=== PATIENT | female | born 1955 | race American Indian/Alaskan Native ===

== ENCOUNTER → 2018-07-06 | Outpatient (CLI) | payer MEDICARE ==
[2018-07-06 15:15] VITALS: BP 125/88; PULSE 75; TEMP 97.7; BMI 32.3
--- NOTE | 2018-07-10 11:42 | P.HPBAR ---
Bariatric H&P - History & Physicial H&P Date: 07/06/18 History & Physicial: Visit/CC: lap band follow up Patient initial contact: Initial weight: Initial weight in pounds: Height: 5 ft 5 in Initial BMI: Last weight: Current weight: 87.997 kg Current weight in pounds: 194.00 Current BMI: 32.3 [place] body weight (based on NIH guidelines): 56.699 kg Excess body weight loss: The patient is a 62 year-old F who presents for Bariatric Assessment. Patient presents today for lab band follow up. Patient's requesting to have fluid added to her band. She currently is hungry. Past Medical History Past Medical History: Hypertension, Thyroid Disorder History of Any Multi-Drug Resistant Organisms: None Reported Past Surgical History: Bariatric Surgery Additional Past Surgical History / Comment(s): LAP BAND Past Anesthesia/Blood Transfusion Reactions: No Reported Reaction Smoking Status: Never smoker Surgical - Exam Vital Signs Temp Pulse BP 97.7 F 75 125/88 07/06/18 15:12 07/06/18 15:12 07/06/18 15:12 - General well developed, well nourished, no distress - Eyes PERRL - ENT normal pinna - Abdomen Abdomen: soft, non tender Bariatric Assessment & Plan Plan: Patient LAP-BAND was adjusted. She had 0.5 mL added to her band. She currently is 2.3 mL in the band. She she was able to water without difficulty. She'll follow-up in 4 weeks. Bariatric Checklist Checklist: Plan: Checklist: EGD: 1. Hiatal hernia: 2. H. Pylori: HgbA1c: Vitamin D: Smoking: Never smoker Primary care physician referral: Psychiatry clearance: Cardiology clearance: Sleep study: Diet journal: VTE risk score: VTE risk level: Rehab needs at discharge:
== END | disposition home or self-care (01) ==
LOC: BARWHC3 13:17
PROVIDERS: ATTEND Surgery
DX: Z46.51 Encounter for fitting and adjustment of gastric lap band (principal); T73.0XXA Starvation, initial encounter; K95.09 Other complications of gastric band procedure; Z98.84 Bariatric surgery status
CPT/HCPCS: 99212

== ENCOUNTER → 2018-09-28 | Outpatient (CLI) | payer MEDICARE ==
[2018-09-28 13:29] VITALS: BP 119/87; PULSE 67; TEMP 98.2; BMI 31.8
--- NOTE | 2018-09-28 15:58 | P.HPBAR ---
Bariatric H&P - History & Physicial H&P Date: 09/28/18 History & Physicial: Visit/CC: lap band follow up Patient initial contact: Initial weight: Initial weight in pounds: Height: 5 ft 5 in Initial BMI: Last weight: Current weight: 86.636 kg Current weight in pounds: 191.00 Current BMI: 31.8 [place] body weight (based on NIH guidelines): 56.699 kg Excess body weight loss: The patient is a 63 year-old F who presents for Bariatric Assessment. Patient presents today for her LAP-BAND follow-up. She states she is hungry she is requesting a fill of her band. Past Medical History Past Medical History: Hypertension, Thyroid Disorder History of Any Multi-Drug Resistant Organisms: None Reported Past Surgical History: Bariatric Surgery Additional Past Surgical History / Comment(s): LAP BAND Past Anesthesia/Blood Transfusion Reactions: No Reported Reaction Past Psychological History: No Psychological Hx Reported Smoking Status: Never smoker Past Alcohol Use History: None Reported Past Drug Use History: None Reported Surgical - Exam Vital Signs Temp Pulse BP 98.2 F 67 119/87 09/28/18 13:27 09/28/18 13:27 09/28/18 13:27 - General well developed, well nourished, no distress - Abdomen Abdomen: soft, non tender Bariatric Assessment & Plan Plan: Attempts were made to adjust the patient LAP-BAND. She was supposed to have 2.3 mL in her band. Only 0.5 mL was aspirated. I discussed patient that she has a LAP-BAND leak creating a malfunction of the LAP-BAND system. The patient is scheduled for replacement of LAP-BAND port. Bariatric Checklist Checklist: Plan: Checklist: EGD: 1. Hiatal hernia: 2. H. Pylori: HgbA1c: Vitamin D: Smoking: Never smoker Primary care physician referral: Psychiatry clearance: Cardiology clearance: Sleep study: Diet journal: VTE risk score: VTE risk level: Rehab needs at discharge:
== END | disposition home or self-care (01) ==
LOC: BARWHC3 13:06
PROVIDERS: ATTEND Surgery
DX: Z48.815 Encounter for surgical aftercare following surgery on the digestive system (principal); Z98.84 Bariatric surgery status
CPT/HCPCS: 99212

== ENCOUNTER 2018-10-26 11:23 | Day surgery (SDC) | payer MEDICARE ==
[~2018-10-26 11:23] MED LIST: DEXAMETHASONE SOD PHOSPHATE 10 MG/ML 1 ML VIAL IV ONE; LIDOCAINE 1% 20 ML VIAL (10MG/ML) FOR IV START INTRADERMA PRN; ONDANSETRON 4 MG/2 ML VIAL IVP ONE; SCOPOLAMINE 1.5MG/72HR PATCH TRANSDERM ONE
--- NOTE | 2018-10-26 11:48 | P.GSHP ---
History of Present Illness H&P Date: 10/26/18 Chief Complaint: LAP-BAND port malfunction This is a 63-year-old female who presents today for laparoscopic replacement of LAP-BAND port. Patient has had a malfunctioning LAP-BAND port. Past Medical History Past Medical History: Hypertension, Thyroid Disorder History of Any Multi-Drug Resistant Organisms: None Reported Past Surgical History: Bariatric Surgery, Tonsillectomy Additional Past Surgical History / Comment(s): LAP BAND Past Anesthesia/Blood Transfusion Reactions: No Reported Reaction Smoking Status: Never smoker - Past Family History Mother Family Medical History: No Reported History Medications and Allergies Home Medications Medication Instructions Recorded Confirmed Type Levothyroxine Sodium [Synthroid] 80 mcg PO DAILY 09/01/17 10/26/18 History Multivitamins, Thera [Multivitamin 1 tab PO DAILY 09/01/17 10/26/18 History (formulary)] Aspirin 81 mg PO DAILY 10/21/18 10/21/18 History Losartan Potassium [Cozaar] 100 mg PO DAILY 10/21/18 10/26/18 History Allergies Allergy/AdvReac Type Severity Reaction Status Date / Time No Known Allergies Allergy Verified 10/26/18 11:40 Surgical - Exam - General well developed, well nourished, no distress - Eyes PERRL - ENT normal pinna - Neck no masses - Respiratory normal expansion - Cardiovascular Rhythm: regular - Abdomen Abdomen: soft, non tender Assessment and Plan Assessment: Malfunctioning LAP-BAND port. We'll perform laparoscopic robotic-assisted repair.
[2018-10-26] MEDS: LACTATED RINGERS 1,000 ML IV SCH (11:51)
[2018-10-26] MEDS ORDERED: HEPARIN SODIUM,PORCINE 5,000 UNIT/ML 1 ML VIAL SQ ONE (12:48)
[2018-10-26] MEDS ORDERED: LIDOCAINE 1% INJ 10MG/ML (20 ML MDV) ONE (12:58)
[2018-10-26] MEDS ORDERED: PROPOFOL 10 MG/ML 20 ML VIAL IV ONE (12:58)
[2018-10-26] MEDS ORDERED: SUCCINYLCHOLINE CHLORIDE 100 MG/5 ML SYR IV ONE (12:58)
[2018-10-26] MEDS ORDERED: GLYCOPYRROLATE 0.2 MG/ML 2 ML VIAL ONE (12:58)
[2018-10-26] MEDS ORDERED: fentaNYL (PF) 50 MCG/ML 2 ML AMP ONE (12:58)
[2018-10-26] MEDS ORDERED: MIDAZOLAM 2 MG/2 ML VIAL ONE (12:58)
[2018-10-26] MEDS ORDERED: NEOSTIGMINE 1 MG/ML 10 ML VIAL ONE (12:58)
[2018-10-26] MEDS ORDERED: ROCURONIUM BROMIDE 10 MG/ML 10 ML VIAL IV ONE (12:58)
[2018-10-26] MEDS ORDERED: KETOROLAC 30 MG/ML 1 ML VIAL ONE (12:58)
[2018-10-26] MEDS ORDERED: BUPIVACAIN-EPI 0.5%-1:200,000 30 ML VIAL SQ ONE (13:10)
[2018-10-26] MEDS ORDERED: HYDROcodone/APAP 5-325MG 1 EACH TAB PO PRN (14:13)
[2018-10-26] MEDS ORDERED: NALOXONE 0.4 MG/ML 1 ML VIAL IV PRN (14:13)
[2018-10-26] MEDS ORDERED: LACTATED RINGERS 1,000 ML IV ONE (14:13)
[2018-10-26] MEDS ORDERED: ACETAMINOPHEN TAB 325 MG TAB PO PRN (14:13)
[2018-10-26] MEDS ORDERED: ONDANSETRON 4 MG/2 ML VIAL IVP PRN (14:13)
[2018-10-26] MEDS ORDERED: HYDROmorphone 0.5 MG/0.5 ML SYRINGE IVP PRN (14:13)
[2018-10-26] MEDS: HYDROmorphone 0.5 MG/0.5 ML SYRINGE IVP PRN ×2 (14:22→14:38)
[2018-10-26] MEDS ORDERED: SODIUM CHLORIDE 0.9% 1,000 ML IV ONE (14:25)
--- NOTE | 2018-10-26 14:53 | P.OP ---
Date of Procedure: 10/26/18 Preoperative Diagnosis: LAP-BAND port malfunction Postoperative Diagnosis: LAP-BAND port malfunction Adhesions Procedure(s) Performed: Laparoscopic replacement of LAP-BAND port Lysis of adhesions Anesthesia: LISA Surgeon: Steven Mccollum Estimated Blood Loss (ml): 5 Pathology: none sent Condition: stable Disposition: PACU Description of Procedure: The patient was placed on the operating table in the supine position. She received general anesthesia. Her abdomen was prepped and draped usual sterile fashion. The patient had a LAP-BAND port located in the left upper quadrant. The patient had a midline scar at the umbilicus. The skin was incised at the LAP-BAND port site and using blunt and sharp dissection with cautery the LAP- BAND port was dissected free from the abdominal wall. The LAP-BAND port had been disconnected from the LAP-BAND itself. A 5 mm blade less trocar was placed into the peritoneal cavity at the LAP-BAND port site under direct visualization the peritoneal . The trochars withdrawn. The peritoneal cavity was insufflated. The pelvic cavity insufflated however the camera in the LAP-BAND port there appeared to be adhesions in this location. At this point a another 5 mm trochars placed under direct visualization into the right upper quadrant area. The laparoscope was placed into this area. The areas were the LAP-BAND port was observed and there appeared to be significant fatty adhesions in this area. There was no evidence of any bowel injury. Next a 5 mm trocar was placed in the left lower quadrant and left lateral position. The 5 mm right upper quadrant trocar site was converted to a 15 mm trocar. The connecting tube was then found in the pelvis. The 19 tube tube was then brought up into the right epigastric trocar site. The camera was rotated between the different trocar sites and no injury to the bowel could be seen. At this point the trochars withdrawn. LAP-BAND port was secured to the connecting tube. The LAP-BAND port was secured to the fascia using 0 Nurolon sutures. The skin was closed with interrupted 3-0 Monocryl suture. Dermabond dressings was applied. Patient top procedure well was sent to recovery room in stable condition.
[2018-10-26 16:47] VITALS: BMI 32.3
[2018-10-27] MEDS: LACTATED RINGERS 1,000 ML IV SCH (01:47)
[2018-10-27 07:46] LABS: Basophils % (A) 0 %; Eosinophils % (A) 0 %; HCT 36.6 % (34.0-46.0); HGB 11.5 gm/dL (11.4-16.0); Lymphocytes # (A) 1.7 k/uL (1.0-4.8); Lymphocytes % (A) 11 %; MCH 28.6 pg (25.0-35.0); MCHC 31.4 g/dL (31.0-37.0); MCV 91.2 fL (80.0-100.0); Mean Platelet Volume 6.5; Monocytes # (A) 0.6 k/uL (0-1.0); Monocytes % (A) 4 %; Neutrophils % (A) 84 %; Platelet Count 362 k/uL (150-450); RBC 4.02 m/uL (3.80-5.40); RDW 13.3 % (11.5-15.5); WBC 15.4 k/uL (3.8-10.6)
[2018-10-27 08:01] LABS: Calcium 9.4 mg/dL (8.4-10.2); Potassium 5.1 mmol/L (3.5-5.1); Total Bilirubin 0.5 mg/dL (0.2-1.3); Total Protein 7.1 g/dL (6.3-8.2)
[2018-10-27] MEDS ORDERED: ENOXAPARIN 40 MG/0.4 ML SYRINGE SQ SCH (09:00)
[2018-10-27] MEDS ORDERED: SODIUM CHLORIDE 0.9% 1,000 ML IV SCH (09:30)
[2018-10-27] MEDS ORDERED: LOSARTAN 50 MG TAB PO SCH (11:00)
[2018-10-27] MEDS ORDERED: LEVOTHYROXINE 75 MCG TAB PO SCH (11:00)
--- NOTE | 2018-10-27 11:34 | P.PN ---
Subjective Progress Note Date: 10/27/18 CHIEF COMPLAINT: LAP BAND port malfunction HISTORY OF PRESENT ILLNESS: Patient seen and examined at the bedside this morning. She is status post laparoscopic replacement of lap band port and lysis of adhesions. Patient reports her pain is tolerable. Tolerating clear liquid diet. Denies nausea or vomiting. WBC this morning 15.4. Vital signs stable. Afebrile. PHYSICAL EXAM: VITAL SIGNS: Reviewed. GENERAL: Well-developed in no acute distress. HEENT: No sclera icterus. Extraocular movements grossly intact. Moist buccal mucosa. Head is atraumatic, normocephalic. ABDOMEN: Soft. Nondistended. Surgical incision sites clean dry and intact without drainage or signs of infection NEUROLOGIC: Alert and oriented. Cranial nerves II through XII grossly intact. ASSESSMENT: 1. Lap band port malfunction, status post replacement of port and lysis of adhesions PLAN: 1. Continue clear liquid diet 2. Monitor WBC 3. Pain control 4. Incentive spirometry 5. Activity as tolerated 6. IV fluids at 100cc/hr 7. Likely DC home tomorrow Nurse practitioner note has been reviewed by physician. Signing provider agrees with the documented findings, assessment, and plan of care. Objective - Vital Signs Vital signs: Vital Signs Temp 98.1 F 10/27/18 07:36 Pulse 67 10/27/18 10:37 Resp 18 10/27/18 10:37 BP 149/67 10/27/18 07:36 Pulse Ox 99 10/27/18 00:53 Intake & Output 10/26/18 10/27/18 10/27/18 18:59 06:59 18:59 Intake Total 1000 250 855 Output Total 5 0 Balance 995 250 855 Intake: IV 1000 Oral 250 855 Output: Stool 0 Estimated Blood Loss 5 Other: Voiding Method Toilet # Voids 1 - Labs CBC & Chem 7: 10/27/18 07:32 10/27/18 07:32 Labs: Abnormal Lab Results - Last 24 Hours (Table) 10/27/18 10/27/18 Range/Units 07:32 07:32 WBC 15.4 H (3.8-10.6) k/uL Neutrophils # 13.0 H (1.3-7.7) k/uL Creatinine 1.38 H (0.52-1.04) mg/dL Glucose 134 H (74-99) mg/dL
--- NOTE | 2018-10-27 15:13 | P.DS ---
Providers Expected date of discharge: 10/27/18 Attending physician: Steven Mccollum Primary care physician: Guillermo Pacheco [facility] Course: 63-year-old female who underwent laparoscopic replacement of lap band port and lysis of adhesions with Dr. Mccollum. Patient is doing well postoperatively without anemia complications. She is tolerating liquid diet. Passing flatus. Pain is tolerable. WBC 15.4. Dr. Mccollum aware. Vital signs have been stable. Patient was deemed stable for discharge today per Dr. Mccollum. She is to follow up on an outpatient basis. Please see EMR for further hospital course details. Discharge diagnosis 1. Lap band port malfunction, status post replacement of port and lysis of adhesions Nurse practitioner note has been reviewed by physician. Signing provider agrees with the documented findings, assessment, and plan of care. Plan - Discharge Summary Discharge Rx Participant: Yes New Discharge Prescriptions: New HYDROcodone/APAP 7.5-325MG [[place] 7.5-325] 1 tab PO Q6HR PRN 3 Days #12 tab PRN Reason: Pain Continue Levothyroxine Sodium [Synthroid] 80 mcg PO DAILY Multivitamins, Thera [Multivitamin (formulary)] 1 tab PO DAILY Losartan Potassium [Cozaar] 100 mg PO DAILY Aspirin 81 mg PO DAILY Discharge Medication List Levothyroxine Sodium [Synthroid] 80 mcg PO DAILY 09/01/17 [History] Multivitamins, Thera [Multivitamin (formulary)] 1 tab PO DAILY 09/01/17 [History] Aspirin 81 mg PO DAILY 10/21/18 [History] Losartan Potassium [Cozaar] 100 mg PO DAILY 10/21/18 [History] HYDROcodone/APAP 7.5-325MG [Oark 7.5-325] 1 tab PO Q6HR PRN 3 Days #12 tab 10/27/18 [Rx] Follow up Appointment(s)/Referral(s): Steven Mccollum MD [STAFF PHYSICIAN] - 1 Week Activity/Diet/Wound Care/Special Instructions: No driving while taking Oark No lifting over 10 pounds You may shower. No soaking or tub baths Very light activity until you are reevaluated at your follow up appointment with your surgeon
[2018-10-27 15:41] VITALS: BP 133/75; PULSE 74; RESP 16; TEMP 98.2
== END 2018-10-27 16:16 | disposition home or self-care (01) ==
LOC: OR 11:23 → 4SSUR 15:24 → OR 10-27 16:16
PROVIDERS: ATTEND Surgery
DX: T85.518A Breakdown (mechanical) of other gastrointestinal prosthetic devices, implants and grafts, initial encounter (principal); Z98.84 Bariatric surgery status; K66.0 Peritoneal adhesions (postprocedural) (postinfection); I10 Essential (primary) hypertension; E07.9 Disorder of thyroid, unspecified; Z79.890 Hormone replacement therapy; Z79.82 Long term (current) use of aspirin; Z79.899 Other long term (current) drug therapy; Z97.2 Presence of dental prosthetic device (complete) (partial)
CPT/HCPCS: 43659; 80053; 85025; J2250; J1644; J1100; J2710; J2405; J2001; J1650; J3010; J1885; J0330; J2704; J1170

== ENCOUNTER → 2018-11-16 | Outpatient (CLI) | payer MEDICARE ==
[2018-11-16 13:59] VITALS: BP 131/81; PULSE 66; RESP 16; TEMP 98.3; BMI 33.0
--- NOTE | 2018-11-16 16:27 | P.HPBAR ---
Bariatric H&P - History & Physicial H&P Date: 11/16/18 History & Physicial: Visit/CC: Port Replaced follow-up Patient initial contact: Initial weight: 95.708 kg Initial weight in pounds: 211.00 Height: 5 ft 5 in Initial BMI: 35.1 Last weight: Current weight: 89.925 kg Current weight in pounds: 198.25 Current BMI: 33.0 [place] body weight (based on NIH guidelines): 56.699 kg Excess body weight loss: 14.8% The patient is a 63 year-old F who presents for Bariatric Assessment. Patient presents today for LAP-BAND follow-up. She had a port replacement performed several weeks ago. Patient describes a small bump at her new LAP-BAND port site Past Medical History Past Medical History: Hypertension, Thyroid Disorder Additional Past Medical History / Comment(s): hypothyroidism History of Any Multi-Drug Resistant Organisms: None Reported Past Surgical History: Bariatric Surgery, Tonsillectomy Additional Past Surgical History / Comment(s): LAP BAND (Port Replaced October 2018) Past Anesthesia/Blood Transfusion Reactions: No Reported Reaction Past Psychological History: No Psychological Hx Reported Smoking Status: Never smoker Past Alcohol Use History: None Reported Past Drug Use History: None Reported - Past Family History Mother Family Medical History: No Reported History Father Family Medical History: Diabetes Mellitus Surgical - Exam Vital Signs Temp Pulse Resp BP 98.3 F 66 16 131/81 11/16/18 13:56 11/16/18 13:56 11/16/18 13:56 11/16/18 13:56 - General well developed, well nourished, no distress - Eyes PERRL - Abdomen Incision site clean and intact. There is evidence of a small seroma Bariatric Assessment & Plan Plan: Patient has a seroma at her new LAP-BAND port site. The sternum was aspirated approximately 8 mL of seroma fluid was removed. Patient follow-up in one month for recheck. Bariatric Checklist Checklist: Plan: Checklist: EGD: 1. Hiatal hernia: 2. H. Pylori: HgbA1c: Vitamin D: Smoking: Never smoker Primary care physician referral: Psychiatry clearance: Cardiology clearance: Sleep study: Diet journal: VTE risk score: VTE risk level: Rehab needs at discharge:
== END | disposition home or self-care (01) ==
LOC: BARWHC3 13:09
PROVIDERS: ATTEND Surgery
DX: L76.34 Postprocedural seroma of skin and subcutaneous tissue following other procedure (principal); K95.09 Other complications of gastric band procedure; Z98.84 Bariatric surgery status
CPT/HCPCS: 99211

== ENCOUNTER → 2018-12-07 | Outpatient (CLI) | payer MEDICARE ==
[2018-12-07 13:48] VITALS: BP 120/81; PULSE 79; RESP 16; TEMP 98.5; BMI 32.3
--- NOTE | 2018-12-07 15:55 | P.HPBAR ---
Bariatric H&P - History & Physicial H&P Date: 12/07/18 History & Physicial: Visit/CC: BAND ADJ Patient initial contact: Initial weight: 95.708 kg Initial weight in pounds: 211.00 Height: 5 ft 5 in Initial BMI: 35.1 Last weight: Current weight: 87.997 kg Current weight in pounds: 194.00 Current BMI: 32.3 [place] body weight (based on NIH guidelines): 56.699 kg Excess body weight loss: 19.7% The patient is a 63 year-old F who presents for Bariatric Assessment. Patient presents today for Isak adjusted. She currently is hungry. She requesting a fill of her band. Past Medical History Past Medical History: Hypertension, Thyroid Disorder Additional Past Medical History / Comment(s): hypothyroidism History of Any Multi-Drug Resistant Organisms: None Reported Past Surgical History: Bariatric Surgery, Tonsillectomy Additional Past Surgical History / Comment(s): LAP BAND (Port Replaced October 2018) Past Anesthesia/Blood Transfusion Reactions: No Reported Reaction Past Psychological History: No Psychological Hx Reported Smoking Status: Never smoker Past Alcohol Use History: None Reported Past Drug Use History: None Reported - Past Family History Mother Family Medical History: No Reported History Father Family Medical History: Diabetes Mellitus Surgical - Exam Vital Signs Temp Pulse Resp BP 98.5 F 79 16 120/81 12/07/18 13:45 12/07/18 13:45 12/07/18 13:45 12/07/18 13:45 - General well developed, well nourished, no distress - Eyes PERRL - Abdomen Abdomen: soft, non tender Bariatric Assessment & Plan Plan: Patient LAP-BAND was adjusted. She had 2 mL added to her band. She was ill drink water without difficulty. She'll follow-up in 4 weeks. Bariatric Checklist Checklist: Plan: Checklist: EGD: 1. Hiatal hernia: 2. H. Pylori: HgbA1c: Vitamin D: Smoking: Never smoker Primary care physician referral: Psychiatry clearance: Cardiology clearance: Sleep study: Diet journal: VTE risk score: VTE risk level: Rehab needs at discharge:
== END | disposition home or self-care (01) ==
LOC: BARWHC3 13:17
PROVIDERS: ATTEND Surgery
DX: Z46.51 Encounter for fitting and adjustment of gastric lap band (principal); Z98.84 Bariatric surgery status; Z90.09 Acquired absence of other part of head and neck
CPT/HCPCS: 99212

== ENCOUNTER → 2019-01-04 | Outpatient (CLI) | payer MEDICARE ==
[2019-01-04 15:17] VITALS: BP 164/89; PULSE 72; TEMP 98.1; BMI 32.8
--- NOTE | 2019-01-07 11:13 | P.HPBAR ---
Bariatric H&P - History & Physicial H&P Date: 01/04/19 History & Physicial: Visit/CC: LAP BAND VISIT Patient initial contact: Initial weight: 95.708 kg Initial weight in pounds: 211.00 Height: 5 ft 5 in Initial BMI: 35.1 Last weight: Current weight: 89.358 kg Current weight in pounds: 197.00 Current BMI: 32.8 [place] body weight (based on NIH guidelines): 56.699 kg Excess body weight loss: 16.2% The patient is a 63 year-old F who presents for Bariatric Assessment. Patient presents today for LAP-BAND adjustment. She currently feels hungry. His gained 3 pounds since her last visit. Past Medical History Past Medical History: Hypertension, Thyroid Disorder Additional Past Medical History / Comment(s): hypothyroidism History of Any Multi-Drug Resistant Organisms: None Reported Past Surgical History: Bariatric Surgery, Tonsillectomy Additional Past Surgical History / Comment(s): LAP BAND (Port Replaced October 2018) Past Anesthesia/Blood Transfusion Reactions: No Reported Reaction Past Psychological History: No Psychological Hx Reported Smoking Status: Never smoker Past Alcohol Use History: None Reported Past Drug Use History: None Reported - Past Family History Mother Family Medical History: No Reported History Father Family Medical History: Diabetes Mellitus Surgical - Exam Vital Signs Temp Pulse BP 98.1 F 72 164/89 01/04/19 15:15 01/04/19 15:15 01/04/19 15:15 - General well developed, well nourished, no distress - Eyes PERRL - ENT normal pinna - Neck no masses - Abdomen Abdomen: soft, non tender Bariatric Assessment & Plan Plan: Patient's lap band was adjusted. There was evidence of an obstruction in the LAP-BAND Víctor tube. The fluid could not be placed. The patient will follow-up in 2 weeks. If she still has obstruction of her LAP-BAND connecting tube she will need a revision of her band. Bariatric Checklist Checklist: Plan: Checklist: EGD: 1. Hiatal hernia: 2. H. Pylori: HgbA1c: Vitamin D: Smoking: Never smoker Primary care physician referral: Psychiatry clearance: Cardiology clearance: Sleep study: Diet journal: VTE risk score: VTE risk level: Rehab needs at discharge:
== END | disposition home or self-care (01) ==
LOC: BARWHC3 13:37
PROVIDERS: ATTEND Surgery
DX: Z46.51 Encounter for fitting and adjustment of gastric lap band (principal); Z98.84 Bariatric surgery status; Z90.89 Acquired absence of other organs
CPT/HCPCS: 99212

== ENCOUNTER → 2019-01-18 | Outpatient (CLI) | payer MEDICARE ==
[2019-01-18 15:03] VITALS: BP 143/86; PULSE 72; RESP 16; TEMP 98.3; BMI 33.3
--- NOTE | 2019-01-18 17:00 | P.HPBAR ---
Bariatric H&P - History & Physicial H&P Date: 01/18/19 History & Physicial: Visit/CC: Band f/u Patient initial contact: Initial weight: 95.708 kg Initial weight in pounds: 211.00 Height: 5 ft 5 in Initial BMI: 35.1 Last weight: Current weight: 90.718 kg Current weight in pounds: 200.00 Current BMI: 33.3 [place] body weight (based on NIH guidelines): 56.699 kg Excess body weight loss: 12.7% The patient is a 63 year-old F who presents for Bariatric Assessment. Patient presents today for lab band follow. She has an issue with her port. The port has not easily flushed. She was unable have fluid withdrawn from the port last visit. Past Medical History Past Medical History: Hypertension, Thyroid Disorder Additional Past Medical History / Comment(s): hypothyroidism History of Any Multi-Drug Resistant Organisms: None Reported Past Surgical History: Bariatric Surgery, Tonsillectomy Additional Past Surgical History / Comment(s): LAP BAND (Port Replaced October 2018) Past Anesthesia/Blood Transfusion Reactions: No Reported Reaction Past Psychological History: No Psychological Hx Reported Smoking Status: Never smoker Past Alcohol Use History: None Reported Past Drug Use History: None Reported - Past Family History Mother Family Medical History: No Reported History Father Family Medical History: Diabetes Mellitus Surgical - Exam Vital Signs Temp Pulse Resp BP 98.3 F 72 16 143/86 01/18/19 15:00 01/18/19 15:00 01/18/19 15:00 01/18/19 15:00 - General well developed, well nourished, no distress - Eyes PERRL - ENT normal pinna - Neck no masses - Respiratory normal expansion - Abdomen Abdomen: soft, non tender Bariatric Assessment & Plan Plan: The patient's LAP-BAND was just. 2 mL was added to her band. She currently is 3.5 mL in the band. The LAP-BAND port could not be aspirated. It appears the patient has some sort of obstruction of the cut tube preventing fluid for being aspirated. The patient will be observed. She'll follow-up in one month. I discussed patient that if her and cannot be adjusted she may need revision to replace the band or convert to sleeve gastrectomy. Bariatric Checklist Checklist: Plan: Checklist: EGD: 1. Hiatal hernia: 2. H. Pylori: HgbA1c: Vitamin D: Smoking: Never smoker Primary care physician referral: Psychiatry clearance: Cardiology clearance: Sleep study: Diet journal: VTE risk score: VTE risk level: Rehab needs at discharge:
== END | disposition home or self-care (01) ==
LOC: BARWHC3 13:51
PROVIDERS: ATTEND Surgery
DX: Z46.51 Encounter for fitting and adjustment of gastric lap band (principal); Z98.84 Bariatric surgery status; Z90.09 Acquired absence of other part of head and neck
CPT/HCPCS: 99211

== ENCOUNTER → 2019-02-08 | Outpatient (CLI) | payer MEDICARE ==
[2019-02-08 12:04] VITALS: BMI 33.3
== END | disposition home or self-care (01) ==
LOC: BARWHC3 08:54
PROVIDERS: ATTEND Surgery
DX: E66.01 Morbid (severe) obesity due to excess calories (principal); Z68.33 Body mass index [BMI] 33.0-33.9, adult
CPT/HCPCS: 97804

== ENCOUNTER → 2019-02-22 | Outpatient (CLI) | payer MEDICARE ==
[2019-02-22 14:38] VITALS: BP 138/80; PULSE 83; TEMP 98.2; BMI 37.0
--- NOTE | 2019-05-02 13:04 | P.HPBAR ---
Bariatric H&P - History & Physicial H&P Date: 02/22/19 History & Physicial: Visit/CC: presurgical visit Patient initial contact: Initial weight: 95.708 kg Initial weight in pounds: 211.00 Height: 5 ft 3 in Initial BMI: 37.3 Last weight: Current weight: 94.801 kg Current weight in pounds: 209.00 Current BMI: 37.0 [place] body weight (based on NIH guidelines): 52.163 kg Excess body weight loss: 2.0% The patient is a 63 year-old F who presents for Bariatric Assessment. Patient presents today for presurgical consultation. She is requesting have her band removed and converted to sleeve gastrectomy. She has had issues with LAP-BAND malfunction chronic dysphagia. Past Medical History Past Medical History: Hypertension, Thyroid Disorder Additional Past Medical History / Comment(s): hypothyroidism History of Any Multi-Drug Resistant Organisms: None Reported Past Surgical History: Bariatric Surgery, Tonsillectomy Additional Past Surgical History / Comment(s): LAP BAND (Port Replaced October 2018) Past Anesthesia/Blood Transfusion Reactions: No Reported Reaction Smoking Status: Never smoker - Past Family History Mother Family Medical History: No Reported History Father Family Medical History: Diabetes Mellitus Surgical - Exam Vital Signs Temp Pulse BP 98.2 F 83 138/80 02/22/19 14:34 02/22/19 14:34 02/22/19 14:34 - General well developed, well nourished, no distress - Eyes PERRL - ENT normal pinna - Cardiovascular Rhythm: regular - Abdomen Abdomen: soft, non tender Bariatric Assessment & Plan Plan: Morbid obesity, BMI 37. Patient's LAP-BAND is dysfunctional. She's had issues with GERD and dysphagia. Patient be converted to sleeve gastrectomy with removal LAP-BAND. Patient reversed surgery including possible conversion to open procedure and injury to the stomach liver spleen vagotomy dysphagia recurrent GERD symptoms. Bariatric Checklist Checklist: Plan: Checklist: EGD: 1. Hiatal hernia: 2. H. Pylori: HgbA1c: Vitamin D: Smoking: Never smoker Primary care physician referral: dr kim Psychiatry clearance: Cardiology clearance: Sleep study: Diet journal: VTE risk score: VTE risk level: Rehab needs at discharge:
== END | disposition home or self-care (01) ==
LOC: BARWHC3 13:55
PROVIDERS: ATTEND Surgery
DX: Z46.51 Encounter for fitting and adjustment of gastric lap band (principal); E66.01 Morbid (severe) obesity due to excess calories; Z68.37 Body mass index [BMI] 37.0-37.9, adult; K21.9 Gastro-esophageal reflux disease without esophagitis; R13.10 Dysphagia, unspecified; Z98.84 Bariatric surgery status
CPT/HCPCS: 99211

== ENCOUNTER 2019-03-25 05:40 | Inpatient (IN) | payer MEDICARE ==
[2019-03-22 16:02] VITALS: BMI 28.3
[~2019-03-25 05:40] MED LIST changes: -DEXAMETHASONE SOD PHOSPHATE 10 MG/ML 1 ML VIAL IV ONE; +ENOXAPARIN 40 MG/0.4 ML SYRINGE SQ ONE; -LIDOCAINE 1% 20 ML VIAL (10MG/ML) FOR IV START INTRADERMA PRN; -ONDANSETRON 4 MG/2 ML VIAL IVP ONE; -SCOPOLAMINE 1.5MG/72HR PATCH TRANSDERM ONE
[2019-03-25] MEDS ORDERED: ONDANSETRON 4 MG/2 ML VIAL IVP ONE (05:51)
[2019-03-25] MEDS ORDERED: MIDAZOLAM 2 MG/2 ML VIAL IV PRN (05:51)
[2019-03-25] MEDS ORDERED: DEXAMETHASONE SOD PHOSPHATE 10 MG/ML 1 ML VIAL IV ONE (05:51)
[2019-03-25] MEDS ORDERED: SCOPOLAMINE 1.5MG/72HR PATCH TRANSDERM ONE (05:51)
[2019-03-25] MEDS: LACTATED RINGERS 1,000 ML IV SCH (06:46)
[2019-03-25] MEDS ORDERED: PROPOFOL 10 MG/ML 20 ML VIAL IV ONE (07:47)
[2019-03-25] MEDS ORDERED: KETAMINE 10 MG/ML 20 ML VIAL ONE (07:47)
[2019-03-25] MEDS ORDERED: PHENYLEPHRINE-0.9% NACL SYG 1 MG/10 ML SYRINGE ONE (07:47)
[2019-03-25] MEDS ORDERED: ePHEDrine SULFATE/0.9% NACL/PF 50 MG/5 ML SYRINGE IV ONE (07:47)
[2019-03-25] MEDS ORDERED: SUCCINYLCHOLINE CHLORIDE 100 MG/5 ML SYR IV ONE (07:47)
[2019-03-25] MEDS ORDERED: NEOSTIGMINE 1 MG/ML 10 ML VIAL ONE (07:47)
[2019-03-25] MEDS ORDERED: fentaNYL (PF) 50 MCG/ML 2 ML AMP ONE (07:47)
[2019-03-25] MEDS ORDERED: MIDAZOLAM 2 MG/2 ML VIAL ONE (07:47)
[2019-03-25] MEDS ORDERED: LIDOCAINE 1% INJ 10MG/ML (20 ML MDV) ONE (07:47)
[2019-03-25] MEDS ORDERED: GLYCOPYRROLATE 0.2 MG/ML 2 ML VIAL ONE (07:47)
[2019-03-25] MEDS ORDERED: ROCURONIUM BROMIDE 10 MG/ML 10 ML VIAL IV ONE (07:47)
--- NOTE | 2019-03-25 07:56 | P.GSHP ---
History of Present Illness H&P Date: 03/25/19 Chief Complaint: Morbid obesity, lap band malfunction This is a 63-year-old female who presents today for removal LAP-BAND and conversion sleeve gastrectomy. Patient had a previous Isak device. Her LAP- BAND port is nonfunctional. Patient elected to undergo removal LAP-BAND and conversion sleeve gastrectomy. Patient will receive surgery including gastric staple line disruption, bleeding or scarring Past Medical History Past Medical History: Hypertension, Thyroid Disorder Additional Past Medical History / Comment(s): Hypothyroidism. History of Any Multi-Drug Resistant Organisms: None Reported Past Surgical History: Bariatric Surgery, Tonsillectomy Additional Past Surgical History / Comment(s): LAP BAND (Port Replaced October 2018). Past Anesthesia/Blood Transfusion Reactions: No Reported Reaction Past Psychological History: No Psychological Hx Reported Smoking Status: Never smoker Past Alcohol Use History: None Reported Past Drug Use History: None Reported - Past Family History Mother Family Medical History: No Reported History Father Family Medical History: Diabetes Mellitus Medications and Allergies Home Medications Medication Instructions Recorded Confirmed Type Multivitamins, Thera [Multivitamin 1 tab PO DAILY 09/01/17 03/25/19 History (formulary)] Aspirin 81 mg PO DAILY 10/21/18 03/25/19 History Losartan Potassium [Cozaar] 100 mg PO QAM 10/21/18 03/25/19 History Levothyroxine Sodium 88 mcg PO QAM 03/22/19 03/25/19 History Allergies Allergy/AdvReac Type Severity Reaction Status Date / Time No Known Allergies Allergy Verified 03/25/19 06:10 Surgical - Exam Vital Signs Temp Pulse Resp BP Pulse Ox 98.7 F 85 16 160/88 98 03/25/19 06:13 03/25/19 06:13 03/25/19 06:13 03/25/19 06:13 03/25/19 06:13 - General well developed, well nourished - Eyes PERRL - ENT normal pinna - Neck no masses - Respiratory normal expansion - Cardiovascular Rhythm: regular - Abdomen Abdomen: soft, non tender Assessment and Plan Assessment: Morbid obesity LAP-BAND port malfunction We'll perform sleeve gastrectomy removal LAP-BAND.
--- NOTE | 2019-03-25 08:05 | P.OP ---
Date of Procedure: 03/25/19 Preoperative Diagnosis: Diarrhea Postoperative Diagnosis: Normal colon Rectal biopsy Procedure(s) Performed: Colonoscopy Anesthesia: MAC Surgeon: Steven Mccollum Pathology: other (Rectal biopsy) Condition: stable Disposition: PACU Description of Procedure: Patient's placed on the endoscopy table in the lateral position. She received IV sedation. The digital rectal exam was performed which revealed no abnormalities. Flexible colonoscope was then placed patient anus passed rotator entire colon. Ileocecal valve was visualized. The cecum, ascending and transverse colon appeared normal. The descending and sigmoid colon appeared normal. Scope was brought back the rectum and this appeared normal. However due the patient's symptoms of diarrhea a random rectal biopsy performed with the cold forcep. Scope was withdrawn for patient.
[2019-03-25] MEDS ORDERED: BUPIVACAINE (PF) 0.25% 30 ML VIAL SQ ONE (08:19)
[2019-03-25] MEDS ORDERED: LACTATED RINGERS 1,000 ML IV ONE (09:03)
[2019-03-25] MEDS: HYDROmorphone 0.5 MG/0.5 ML SYRINGE IVP PRN ×3 (09:51→10:12)
[2019-03-25] MEDS ORDERED: ONDANSETRON 4 MG/2 ML VIAL IVP PRN (10:53)
[2019-03-25] MEDS ORDERED: METOCLOPRAMIDE 5 MG/ML 2 ML VIAL IVP PRN (10:53)
[2019-03-25] MEDS ORDERED: ACETAMINOPHEN IV (For NPO) 1,000 MG in EMPTY BAG 1 BAG IVPB PRN (10:54)
[2019-03-25] MEDS ORDERED: SODIUM CHLORIDE 0.9% 1,000 ML IV ONE ×2 (11:11)
[2019-03-25] MEDS ORDERED: NALOXONE 0.4 MG/ML 1 ML VIAL IV PRN (11:37)
--- NOTE | 2019-03-25 11:37 | P.ANPRN ---
Procedure Note - Anesthesia - Nerve Block Performed Other (see comment) Time Out Performed: Yes (Thoracic Continuous Epidural T-10) Date of Procedure: 03/25/19 Procedure Start Time: 10:12 Location of Patient: Phase I Indication: Acute Post-Operative Pain Specifically requested for management of pain by DrLucero: Steven Mccollum Sedation Type: Sedate with meaningful contact maintained Preparation: Sterile Prep Position: Right Lateral (Right paramedian approach) Catheter Depth at Skin (cm): 10 Catheter: Indwelling Needle Types: Other (see comment) (Standard epidural catheter) Needle Gauge: 18 (TouhEverfi) Ultrasound used to visualize needle placement: No Ultrasound used to observe medication spread: No Injectate: Other (see comment) (Lidocaine 1-1/2% with epinephrine 5 mcg/mL and 3 mL test dose) Adjunct: Epinephrine (see comment for dilution ratio) (1/200,000) Blood Aspirated: No Pain Paresthesia on Injection Noted: No Resistance on Injection: Normal Image Stored and Saved: No Events: Uneventful and Well Tolerated
[2019-03-25 11:46] LABS: HCT 32.2 % (34.0-46.0); HGB 10.6 gm/dL (11.4-16.0); MCH 30.1 pg (25.0-35.0); MCHC 32.8 g/dL (31.0-37.0); MCV 91.7 fL (80.0-100.0); Mean Platelet Volume 7.3; Platelet Count 289 k/uL (150-450); RBC 3.51 m/uL (3.80-5.40); RDW 12.6 % (11.5-15.5); WBC 17.9 k/uL (3.8-10.6)
--- NOTE | 2019-03-25 11:57 | P.OP ---
Date of Procedure: 03/25/19 Preoperative Diagnosis: Lap band malfunction Morbid obesity Postoperative Diagnosis: LAP-BAND malfunction Morbid obesity Significant adhesions Procedure(s) Performed: Laparoscopic lysis of adhesions Open lysis of adhesions Removal of LAP-BAND system Anesthesia: LISA Surgeon: Steven Mccollum Pathology: none sent Condition: stable Disposition: PACU Description of Procedure: Patient's placed on the operating table in supine position. She received general anesthesia. She was then placed in dorsal lithotomy position. Her abdomen was prepped and draped in usual sterile fashion. The skin was incised the LAP-BAND port site then using a large cautery and blunt and sharp dissection LAP-BAND port was dissected free from the fascia. It was sent to pathology. Using a Veress needle in the left upper quadrant a small skin incision was made and then the Veress needles placed in the left epigastric area just below the costal margin. The abdomen was insufflated. Next a skin incision made in the left lateral position and then using an optical trocar under direct visualization panel cavity is entered. There appeared to be extensive adhesions around the 5 mm trocar. At this point a another 5 mm trochars placed in the right lateral position this was done under direct vision through an optical trocar. The laparoscope was then placed into the. Cavity. There were extensive adhesions from the midline and in the left upper quadrant. Another 5 millimeter trocar is placed in the right lateral position and the adhesions were lysed. At this point decided to perform an open removal of the LAP-BAND device because of the significant adhesions. The trochars withdrawn. The skin was incised the midline. Using cautery the subcutaneous tissue divided. The fascia was divided midline. And then the fascia was grasped her Yamileth's. Approximately 20 minutes of operative time used to lyse adhesions. The LAP-BAND device was found. The adhesions Isak device were then dissected using cautery. The LAP-BAND was then cut and then withdrawn from around stomach. The abdomen was drained states. There is no bleeding seen. The fascia is closed loop #1 PDS suture. The skin was closed darcy. Patient top she will was sent to recovery in stable condition.
[2019-03-25] MEDS: ROPIVACAINE 400 MG, HYDROMORPHONE (PF) 5 MG in SODIUM CHLORIDE 0.9% 170 ML EPIDURAL PRN ×2 (12:16→13:31)
[2019-03-25] MEDS: DEXTROSE 5%-0.45% NACL 1,000 ML IV SCH ×2 (14:50→21:35)
[2019-03-25 15:28] VITALS: RESP 16
[2019-03-25] MEDS: diphenhydrAMINE 25 MG CAP PO PRN (20:53)
[2019-03-26] MEDS: diphenhydrAMINE 25 MG CAP PO PRN ×2 (04:33→09:56)
[2019-03-26] MEDS: DEXTROSE 5%-0.45% NACL 1,000 ML IV SCH ×3 (04:33→20:02)
[2019-03-26] MEDS: LACTATED RINGERS 1,000 ML IV SCH (04:39)
[2019-03-26] MEDS: PANTOPRAZOLE 40 MG/10 ML VIAL IVP SCH (07:04)
[2019-03-26] MEDS: ENOXAPARIN 40 MG/0.4 ML SYRINGE SQ SCH (07:04)
[2019-03-26 07:34] LABS: Basophils % (A) 0 %; Eosinophils % (A) 0 %; HCT 32.8 % (34.0-46.0); HGB 10.3 gm/dL (11.4-16.0); Lymphocytes # (A) 1.5 k/uL (1.0-4.8); Lymphocytes % (A) 10 %; MCH 28.8 pg (25.0-35.0); MCHC 31.5 g/dL (31.0-37.0); MCV 91.7 fL (80.0-100.0); Monocytes # (A) 0.9 k/uL (0-1.0); Monocytes % (A) 6 %; Neutrophils # (A) 12.8 k/uL (1.3-7.7); Neutrophils % (A) 84 %; Platelet Count 308 k/uL (150-450); RBC 3.58 m/uL (3.80-5.40); RDW 12.6 % (11.5-15.5); WBC 15.3 k/uL (3.8-10.6)
[2019-03-26 07:43] LABS: Calcium 8.8 mg/dL (8.4-10.2); Potassium 4.7 mmol/L (3.5-5.1)
--- NOTE | 2019-03-26 08:38 | P.PN ---
Progress Note - Text Progress Note Date: 03/26/19 Patient is without complaints. Denies pain. Ambulating w/o leg weakness. Denies headache or pruritis. Tolerating clears. Epidural @ 4 ml/hr VSS Back - epidural site clean and dry A/P POD#1 s/p Ex lap, LUIS, lap band removal - continue current regimen
[2019-03-26] MEDS ORDERED: HYDROmorphone 0.5 MG/0.5 ML SYRINGE IVP PRN (09:47)
[2019-03-26] MEDS: LOSARTAN 50 MG TAB PO SCH (09:52)
[2019-03-26] MEDS: MULTIVITAMINS, THERA 1 EACH TAB PO SCH (09:53)
[2019-03-26] MEDS: LEVOTHYROXINE 88 MCG TAB PO SCH (09:53)
[2019-03-26] MEDS ORDERED: KETOROLAC 30 MG/ML 1 ML VIAL IVP PRN (13:18)
--- NOTE | 2019-03-26 13:20 | P.PN ---
Subjective Progress Note Date: 03/26/19 CHIEF COMPLAINT: lap band malfunction, morbid obesity HISTORY OF PRESENT ILLNESS: 63-year-old female who underwent open lysis of adhesions and removal of lap band system. Patient was originally scheduled for sleeve gastrectomy but was unable to be performed secondary to extensive adhesions. patient examined this morning at the bedside. She reports her pain is tolerable. She is epidural infusing. Patient is complaining of itching with the epidural and states the Benadryl is not helping. She is tolerating clear liquid diet. Passing flatus. Denies nausea or vomiting. PHYSICAL EXAM: VITAL SIGNS: Reviewed. GENERAL: Well-developed in no acute distress. HEENT: No sclera icterus. Extraocular movements grossly intact. Moist buccal mucosa. Head is atraumatic, normocephalic. ABDOMEN: Soft. Nondistended. Dressing to midline incision clean dry and intact. NEUROLOGIC: Alert and oriented. Cranial nerves II through XII grossly intact. ASSESSMENT: 1. lap band malfunction, morbid obesity, s/p open lysis of adhesions and removal of lap band system PLAN: -Patient c/o itching not relieved with Benadryl. Dr. Mccollum okayed epidural to be discontinued today. patient did receive Lovenox this morning. Discussed with nursing who will discontinue epidural 12 hours after Lovenox administration time. Will add IV Dilaudid and Preston as needed -Discontinue Cota catheter tomorrow morning -Advance diet to full liquid -Incentive spirometer 10 times an hour while awake -Increase activity as tolerated -Possible discharge within the next 24-48 hours Nurse practitioner note has been reviewed by physician. Signing provider agrees with the documented findings, assessment, and plan of care. Objective - Vital Signs Vital signs: Vital Signs Temp 98.2 F 03/26/19 07:30 Pulse 81 03/26/19 07:30 Resp 16 03/26/19 07:30 BP 121/56 03/26/19 07:30 Pulse Ox 98 03/25/19 23:00 Intake & Output 03/25/19 03/26/19 03/26/19 18:59 06:59 18:59 Intake Total 1705.5 Output Total 1999 Balance 1705.5 -1999 Weight 89.811 kg Intake: IV 1705.5 Output: Urine 1999 Other: Voiding Method Indwelling Catheter Indwelling Catheter - Labs CBC & Chem 7: 03/26/19 06:51 03/26/19 06:51 Labs: Abnormal Lab Results - Last 24 Hours (Table) 03/26/19 03/26/19 Range/Units 06:51 06:51 WBC 15.3 H (3.8-10.6) k/uL RBC 3.58 L (3.80-5.40) m/uL Hgb 10.3 L (11.4-16.0) gm/dL Hct 32.8 L (34.0-46.0) % Neutrophils # 12.8 H (1.3-7.7) k/uL Sodium 135 L (137-145) mmol/L Carbon Dioxide 21 L (22-30) mmol/L BUN 22 H (7-17) mg/dL Creatinine 1.71 H (0.52-1.04) mg/dL
[2019-03-26] MEDS: HYDROcodone/APAP 5-325MG 1 EACH TAB PO PRN ×3 (16:26→23:39)
--- NOTE | 2019-03-26 16:43 | P.CONS ---
History of Present Illness - Reason for Consult Consult date: 03/26/19 Medical management of hypertension and hypothyroidism - Chief Complaint Lap band malfunction - History of Present Illness 63-year-old female who presents today for removal LAP-BAND and conversion sleeve gastrectomy. Patient had a previous Isak device. Her LAP-BAND port is nonfunctional. Patient elected to undergo removal LAP-BAND and conversion sleeve gastrectomy. Patient will receive surgery including gastric staple line disruption, bleeding or scarring Patient underwent surgery on 03/25/2019 with laparoscopic lysis of adhesion, open lysis of adhesions and removal of lap band system; patient was initially scheduled for sleeve gastrectomy which could not be performed secondary to ext ensive adhesions; patient is POD #1 Review of Systems REVIEW OF SYSTEMS: CONSTITUTIONAL: No fever, no malaise, no fatigue. HEENT: No recent visual problems or hearing problems. Denied any sore throat. CARDIOVASCULAR: No chest pain, orthopnea, PND, no palpitations, no syncope. PULMONARY: No shortness of breath, no cough, no hemoptysis. GASTROINTESTINAL: No diarrhea, no nausea, no vomiting, no abdominal pain. NEUROLOGICAL: No headaches, no weakness, no numbness. HEMATOLOGICAL: Denies any bleeding or petechiae. GENITOURINARY: Denies any burning micturition, frequency, or urgency. MUSCULOSKELETAL/RHEUMATOLOGICAL: Denies any joint pain, swelling, or any muscle pain. ENDOCRINE: Denies any polyuria or polydipsia. The rest of the 14-point review of systems is negative. Past Medical History Past Medical History: Hypertension, Thyroid Disorder Additional Past Medical History / Comment(s): Hypothyroidism. History of Any Multi-Drug Resistant Organisms: None Reported Past Surgical History: Bariatric Surgery, Tonsillectomy Additional Past Surgical History / Comment(s): LAP BAND (Port Replaced October 2018). Past Anesthesia/Blood Transfusion Reactions: No Reported Reaction Past Psychological History: No Psychological Hx Reported Smoking Status: Never smoker Past Alcohol Use History: None Reported Past Drug Use History: None Reported - Past Family History Mother Family Medical History: No Reported History Father Family Medical History: Diabetes Mellitus Medications and Allergies Home Medications Medication Instructions Recorded Confirmed Type Multivitamins, Thera [Multivitamin 1 tab PO DAILY 09/01/17 03/25/19 History (formulary)] Aspirin 81 mg PO DAILY 10/21/18 03/25/19 History Losartan Potassium [Cozaar] 100 mg PO QAM 10/21/18 03/25/19 History Levothyroxine Sodium 88 mcg PO QAM 03/22/19 03/25/19 History Hydrocodone/Acetaminophen [[place] 1 tab PO Q6HR PRN 3 Days #12 tab 03/26/19 Rx 5-325] Allergies Allergy/AdvReac Type Severity Reaction Status Date / Time No Known Allergies Allergy Verified 03/25/19 06:10 Physical Exam Vitals: Vital Signs Temp Pulse Pulse Pulse Resp BP Pulse Ox 03/26/19 07:30 98.2 F 81 16 121/56 03/26/19 02:22 109/58 03/26/19 00:00 16 03/25/19 23:00 98.3 F 91 16 80/52 98 03/25/19 20:00 16 03/25/19 19:56 97.8 F 95 16 116/60 94 L 03/25/19 14:03 97.5 F L 83 16 144/81 95 03/25/19 13:00 87 17 137/67 100 03/25/19 12:30 77 16 128/76 100 03/25/19 12:15 76 16 130/76 100 Intake and Output 03/25/19 03/26/19 03/26/19 22:59 06:59 14:59 Output Total 600 1400 Balance -600 -1400 Output: Urine 600 1400 Other: Voiding Method Indwelling Catheter Indwelling Catheter PHYSICAL EXAMINATION: GENERAL: The patient is alert and oriented x3, not in any acute distress. Well developed, well nourished. HEENT: Pupils are round and equally reacting to light. EOMI. No scleral icterus. No conjunctival pallor. Normocephalic, atraumatic. No pharyngeal erythema. No thyromegaly. CARDIOVASCULAR: S1 and S2 present. No murmurs, rubs, or gallops. PULMONARY: Chest is clear to auscultation, no wheezing or crackles. ABDOMEN: Soft, nontender, nondistended, normoactive bowel sounds. No palpable organomegaly. MUSCULOSKELETAL: No joint swelling or deformity. EXTREMITIES: No cyanosis, clubbing, or pedal edema. NEUROLOGICAL: Gross neurological examination did not reveal any focal deficits. SKIN: No rashes. Results CBC & Chem 7: 03/26/19 06:51 03/26/19 06:51 Labs: Abnormal Lab Results - Last 24 Hours (Table) 03/26/19 03/26/19 Range/Units 06:51 06:51 WBC 15.3 H (3.8-10.6) k/uL RBC 3.58 L (3.80-5.40) m/uL Hgb 10.3 L (11.4-16.0) gm/dL Hct 32.8 L (34.0-46.0) % Neutrophils # 12.8 H (1.3-7.7) k/uL Sodium 135 L (137-145) mmol/L Carbon Dioxide 21 L (22-30) mmol/L BUN 22 H (7-17) mg/dL Creatinine 1.71 H (0.52-1.04) mg/dL Assessment and Plan Assessment: 1. Lap band malfunction/ morbid obesity - Patient underwent initially laparoscopic and then open lysis of adhesions and removal of lap band system; patient plan was to perform sleeve gastrectomy at the time which could not be performed secondary to extensive adhesions; [facility] surgery is following and patient has been advanced to clear liquid diet; patient reports passing flatus 2. Hypertension; continue with losartan 100 mg daily 3. Hypothyroidism; clinically euthyroid on levothyroxine 88 MCG daily 4. DVT prophylaxis; SCDs/subcu Lovenox CODE STATUS; full code Time with Patient: Greater than 30
[2019-03-27] MEDS: HYDROcodone/APAP 5-325MG 1 EACH TAB PO PRN ×3 (04:01→15:48)
[2019-03-27] MEDS: DEXTROSE 5%-0.45% NACL 1,000 ML IV SCH ×2 (04:08→12:32)
[2019-03-27] MEDS: LEVOTHYROXINE 88 MCG TAB PO SCH (05:37)
[2019-03-27] MEDS: LACTATED RINGERS 1,000 ML IV SCH (05:37)
[2019-03-27] MEDS: MULTIVITAMINS, THERA 1 EACH TAB PO SCH (08:21)
[2019-03-27] MEDS: LOSARTAN 50 MG TAB PO SCH (08:21)
[2019-03-27] MEDS: PANTOPRAZOLE 40 MG/10 ML VIAL IVP SCH (08:21)
[2019-03-27] MEDS: ENOXAPARIN 40 MG/0.4 ML SYRINGE SQ SCH (08:21)
--- NOTE | 2019-03-27 10:16 | P.PN ---
Subjective Progress Note Date: 03/27/19 Principal diagnosis: Lap band intolerance Patient doing fairly well today. T-max 100.5. No labs. She is tolerating her liquid diet. She states she would like to go home today if possible. She is ambulating. Objective - Vital Signs Vital signs: Vital Signs Temp 98.5 F 03/27/19 05:26 Pulse 77 03/27/19 07:50 Resp 16 03/27/19 07:50 BP 106/68 03/27/19 01:41 Pulse Ox 91 L 03/27/19 01:41 Intake & Output 03/26/19 03/27/19 03/27/19 18:59 06:59 18:59 Intake Total 2280 Output Total 1250 2000 Balance 1030 -2000 Intake: Oral 2280 Output: Urine 1250 1999 Other: Voiding Method Indwelling Catheter Indwelling Catheter Indwelling Catheter # Voids 0 - Exam Abdomen: Soft, nondistended, dressing clean and dry, mild tenderness - Labs CBC & Chem 7: 03/26/19 06:51 03/26/19 06:51 Assessment and Plan (1) GERD (gastroesophageal reflux disease) Narrative/Plan: Patient doing fairly well. Continue to monitor throughout the day. Possible discharge later today or tomorrow. Current Visit: Yes Status: Acute Code(s): K21.9 - GASTRO-ESOPHAGEAL REFLUX DISEASE WITHOUT ESOPHAGITIS SNOMED Code(s): 411454626
[2019-03-27 10:51] LABS: Basophils % (A) 0 %; Eosinophils # (A) 0.2 k/uL (0-0.7); Eosinophils % (A) 2 %; HCT 32.3 % (34.0-46.0); HGB 10.4 gm/dL (11.4-16.0); Lymphocytes # (A) 1.1 k/uL (1.0-4.8); Lymphocytes % (A) 11 %; MCH 29.3 pg (25.0-35.0); MCV 91.6 fL (80.0-100.0); Mean Platelet Volume 7.1; Monocytes # (A) 0.5 k/uL (0-1.0); Monocytes % (A) 5 %; Neutrophils # (A) 7.8 k/uL (1.3-7.7); Neutrophils % (A) 80 %; Platelet Count 256 k/uL (150-450); RBC 3.53 m/uL (3.80-5.40); RDW 12.7 % (11.5-15.5); WBC 9.7 k/uL (3.8-10.6)
[2019-03-27 15:33] VITALS: BP 127/81; PULSE 71; TEMP 98.9
--- NOTE | 2019-03-27 15:54 | P.PN ---
Subjective Progress Note Date: 03/27/19 Principal diagnosis: lap band malfunction Hypertension Hypothyroidism 03/27/2019 Patient is seen and evaluated in room at bedside; has been ambulating to the bathroom with help and is tolerating diet okay; vital signs and labs are reviewed and are stable; patient is stable for discharge from medical standpoint Objective - Vital Signs Vital signs: Vital Signs Temp 98.3 F 03/27/19 07:40 Pulse 77 03/27/19 07:50 Resp 16 03/27/19 07:50 BP 111/69 03/27/19 07:40 Pulse Ox 94 L 03/27/19 07:40 Intake & Output 03/26/19 03/27/19 03/27/19 18:59 06:59 18:59 Intake Total 2280 Output Total 1250 2000 400 Balance 1030 -2000 -400 Intake: Oral 2280 Output: Urine 1250 2000 400 Uretheral (Cota) 400 Other: Voiding Method Indwelling Catheter Indwelling Catheter Indwelling Catheter # Voids 0 - Exam GENERAL: The patient is alert and oriented x3, not in any acute distress. Well developed, well nourished. HEENT: Pupils are round and equally reacting to light. EOMI. No scleral icterus. No conjunctival pallor. Normocephalic, atraumatic. No pharyngeal erythema. No thyromegaly. CARDIOVASCULAR: S1 and S2 present. No murmurs, rubs, or gallops. PULMONARY: Chest is clear to auscultation, no wheezing or crackles. ABDOMEN: Soft, nontender, nondistended, normoactive bowel sounds. No palpable organomegaly. MUSCULOSKELETAL: No joint swelling or deformity. EXTREMITIES: No cyanosis, clubbing, or pedal edema. NEUROLOGICAL: Gross neurological examination did not reveal any focal deficits. SKIN: No rashes. - Labs CBC & Chem 7: 03/27/19 10:40 03/26/19 06:51 Labs: Abnormal Lab Results - Last 24 Hours (Table) 03/27/19 Range/Units 10:40 RBC 3.53 L (3.80-5.40) m/uL Hgb 10.4 L (11.4-16.0) gm/dL Hct 32.3 L (34.0-46.0) % Neutrophils # 7.8 H (1.3-7.7) k/uL Assessment and Plan Assessment: 1. Lap band malfunction/ morbid obesity - Patient underwent initially laparoscopic and then open lysis of adhesions and removal of lap band system; patient plan was to perform sleeve gastrectomy at the time which could not be performed secondary to extensive adhesions; bariatric surgery is following and patient has been advanced to clear liquid diet; patient reports passing flatus 2. Hypertension; continue with losartan 100 mg daily 3. Hypothyroidism; clinically euthyroid on levothyroxine 88 MCG daily 4. DVT prophylaxis; SCDs/subcu Lovenox CODE STATUS; full code
== END 2019-03-27 16:00 | disposition home or self-care (01) | DRG 328 ==
LOC: 2ORMAIN 05:40 → 4SSUR 13:24
PROVIDERS: ADMIT Surgery; ATTEND Surgery
PROC: 0DNW0ZZ Release Peritoneum, Open Approach (ICD-10-PCS; 2019-03-25)
PROC: 0DNW4ZZ Release Peritoneum, Percutaneous Endoscopic Approach (ICD-10-PCS; 2019-03-25)
PROC: 0DBP8ZX Excision of Rectum, Via Natural or Artificial Opening Endoscopic, Diagnostic (ICD-10-PCS; 2019-03-25)
PROC: 0DP60CZ Removal of Extraluminal Device from Stomach, Open Approach (ICD-10-PCS; principal; 2019-03-25 07:40)
DX: K95.09 Other complications of gastric band procedure (principal); E03.9 Hypothyroidism, unspecified; Z68.35 Body mass index [BMI] 35.0-35.9, adult; E66.01 Morbid (severe) obesity due to excess calories; I10 Essential (primary) hypertension; K66.0 Peritoneal adhesions (postprocedural) (postinfection); K21.9 Gastro-esophageal reflux disease without esophagitis; L29.9 Pruritus, unspecified; R19.7 Diarrhea, unspecified; Z79.82 Long term (current) use of aspirin; Z79.890 Hormone replacement therapy; Z79.899 Other long term (current) drug therapy; Z83.3 Family history of diabetes mellitus; Y73.2 Prosthetic and other implants, materials and accessory gastroenterology and urology devices associated with adverse incidents
CPT/HCPCS: 80048; 85025; 85027

== ENCOUNTER → 2019-04-02 | Outpatient (CLI) | payer MEDICARE ==
[2019-04-02 10:52] VITALS: BP 139/85; PULSE 76; RESP 16; TEMP 97.8; BMI 34.7
== END | disposition home or self-care (01) ==
LOC: BARWHC3 10:06
PROVIDERS: ATTEND Surgery
DX: Z46.51 Encounter for fitting and adjustment of gastric lap band (principal); I10 Essential (primary) hypertension; E03.9 Hypothyroidism, unspecified; Z98.84 Bariatric surgery status; Z79.890 Hormone replacement therapy; Z79.899 Other long term (current) drug therapy
CPT/HCPCS: 99211

== ENCOUNTER → 2019-04-09 | Outpatient (CLI) | payer MEDICARE ==
[2019-04-09 12:44] VITALS: BP 152/78; PULSE 82; TEMP 98.4; BMI 35.9
== END | disposition home or self-care (01) ==
LOC: BARWHC3 10:29
PROVIDERS: ATTEND Surgery
DX: E66.01 Morbid (severe) obesity due to excess calories (principal); Z98.84 Bariatric surgery status
CPT/HCPCS: 99211

== ENCOUNTER → 2019-06-28 | Outpatient (CLI) | payer MEDICARE ==
[2019-06-28 14:39] VITALS: BP 137/87; PULSE 81; TEMP 98.2; BMI 37.7
== END | disposition home or self-care (01) ==
LOC: BARWHC3 13:09
PROVIDERS: ATTEND Surgery
DX: Z46.51 Encounter for fitting and adjustment of gastric lap band (principal); K59.00 Constipation, unspecified; Z98.84 Bariatric surgery status
CPT/HCPCS: 99211

== ENCOUNTER → 2019-09-20 | Outpatient (CLI) | payer MEDICARE ==
[2019-09-20 11:51] LABS: Basophils % (A) 1 %; Eosinophils # (A) 0.2 k/uL (0-0.7); Eosinophils % (A) 2 %; HCT 41.2 % (34.0-46.0); HGB 12.7 gm/dL (11.4-16.0); Lymphocytes # (A) 1.4 k/uL (1.0-4.8); Lymphocytes % (A) 16 %; MCH 29.1 pg (25.0-35.0); MCHC 30.7 g/dL (31.0-37.0); MCV 94.7 fL (80.0-100.0); Mean Platelet Volume 7.3; Monocytes # (A) 0.3 k/uL (0-1.0); Monocytes % (A) 4 %; Neutrophils # (A) 6.3 k/uL (1.3-7.7); Neutrophils % (A) 76 %; Platelet Count 352 k/uL (150-450); RBC 4.35 m/uL (3.80-5.40); RDW 14.1 % (11.5-15.5); WBC 8.4 k/uL (3.8-10.6)
[2019-09-20 12:09] LABS: Albumin 4.5 g/dL (3.5-5.0); Calcium 9.6 mg/dL (8.4-10.2); Potassium 4.5 mmol/L (3.5-5.1); Total Bilirubin 0.6 mg/dL (0.2-1.3); Total Protein 7.9 g/dL (6.3-8.2)
== END | disposition home or self-care (01) ==
LOC: LABWHC1 10:36
PROVIDERS: ATTEND Surgery
DX: Z01.818 Encounter for other preprocedural examination (principal); Z11.59 Encounter for screening for other viral diseases
CPT/HCPCS: 80053; 85025; 36415; U0003

== ENCOUNTER 2019-10-04 05:59 | Inpatient (IN) | payer MEDICARE ==
[2019-10-04] MEDS ORDERED: ONDANSETRON 4 MG/2 ML VIAL IVP ONE (06:03)
[2019-10-04] MEDS ORDERED: DEXAMETHASONE SOD PHOSPHATE 10 MG/ML 1 ML VIAL IV ONE (06:03)
[2019-10-04] MEDS: LACTATED RINGERS 1,000 ML IV SCH (06:48)
[2019-10-04] MEDS ORDERED: BUPIVACAIN-EPI 0.25%-1:200,000 30 ML VIAL SQ ONE ×2 (07:35)
[2019-10-04] MEDS ORDERED: ROCURONIUM BROMIDE 10 MG/ML 5 ML VIAL IV ONE (07:50)
[2019-10-04] MEDS ORDERED: ePHEDrine SULFATE/0.9% NACL/PF 50 MG/5 ML SYRINGE IV ONE (07:50)
[2019-10-04] MEDS ORDERED: PROPOFOL 10 MG/ML 20 ML VIAL IV ONE (07:50)
[2019-10-04] MEDS ORDERED: GLYCOPYRROLATE 0.2 MG/ML 2 ML VIAL ONE (07:50)
[2019-10-04] MEDS ORDERED: LIDOCAINE 1% INJ 10MG/ML (20 ML MDV) ONE (07:50)
[2019-10-04] MEDS ORDERED: HYDROmorphone (PF) 1 MG/ML ONE (07:50)
[2019-10-04] MEDS ORDERED: MIDAZOLAM 2 MG/2 ML VIAL ONE (07:50)
[2019-10-04] MEDS ORDERED: SUCCINYLCHOLINE CHLORIDE 100 MG/5 ML SYR IV ONE (07:50)
[2019-10-04] MEDS ORDERED: NEOSTIGMINE 1 MG/ML 10 ML VIAL ONE (07:50)
[2019-10-04] MEDS ORDERED: fentaNYL (PF) 50 MCG/ML 2 ML AMP ONE (07:50)
[2019-10-04] MEDS ORDERED: LACTATED RINGERS 1,000 ML IV ONE (09:40)
[2019-10-04] MEDS ORDERED: diphenhydrAMINE 50 MG/ML 1 ML VIAL IVP PRN (10:00)
[2019-10-04] MEDS ORDERED: HYOSCYAMINE ORAL DROPS 1.875 MG/15 ML BOTTLE PO PRN (10:00)
[2019-10-04] MEDS ORDERED: ONDANSETRON 4 MG/2 ML VIAL IVP PRN (10:00)
[2019-10-04] MEDS ORDERED: SIMETHICONE 40 MG/0.6 ML DROPS 2,000 MG/30 ML BOTTLE PO PRN (10:00)
[2019-10-04] MEDS ORDERED: NALOXONE 0.4 MG/ML 1 ML VIAL IV PRN (10:00)
--- NOTE | 2019-10-04 10:13 | P.OP ---
Date of Procedure: 10/04/19 Preoperative Diagnosis: Morbid obesity, BMI 40 Postoperative Diagnosis: Morbid obesity, BMI 40 Procedure(s) Performed: Laparoscopic lysis of adhesions Sleeve gastrectomy Intraoperative EGD Anesthesia: LISA Surgeon: Steven Mccollum Estimated Blood Loss (ml): 50 Pathology: other (Stomach) Condition: stable Disposition: PACU Description of Procedure: The patient's placed on the operative table in the supine position. She received general anesthesia. She was then placed in dorsal lithotomy position. The patient had a upper midline scar. Using the Veress needle in the left upper quadrant the perineal cavity is entered. There appeared to be evidence of high insufflation pressure. At this point using an optical trocar under direct visualization in the right lateral position. Under direct visualization.. The abdomen was insufflated. And again adhesions were noted. At this point decided to convert to the open procedure. Trochars withdrawn. The skin was incised in midline. There were dense adhesions along the midline scar. Using left cautery and sharp dissection the adhesions were lysed. Approximately 35 minutes operative time used to lyse adhesions. This point the Bookwalter retractors placed a wound. Stomach was visualized. The greater curvature stomach was then dissected using the Enseal device. Once the fundus was completely mobilized. The anterior gastric wall plication was taken down with sharp dissection. Patient previous LAP-BAND device. The LAP-BAND had been previously removed. Next the 40-Italian bougie dilator patient oropharynx past esophagus and into the stomach. Using the powered echelon stapler with black load first and then green loads the sleeve gastrectomy performed by sequential firing of the stapler. The specimen sent to pathology. The dilator was withdrawn. The gastroscope was then placed patient oropharynx and passed in the esophagus and stomach the gastric sleeve was visualized. There is no incision any leak along sleeve. The sleeve was held under water while air was insufflated into the stomach. No leak was visualized. This point the abdomen was irrigated. There is no bleeding seen. The fascia was closed with looped #1 PDS suture. The skin was closed. Patient top she will was sent to recovery room in stable condition.
--- NOTE | 2019-10-04 10:14 | P.GSHP ---
History of Present Illness H&P Date: 10/04/19 Chief Complaint: Morbid obesity, BMI 40 This a 64-year-old female who presents today for sleeve gastrectomy. Patient has lifetime problems obesity. Patient had a previous Isak which was removed several months ago. Patient significant adhesions at that time she had her LAP- BAND removed and the open fashion. The patient is where the risks of gastric sleeve surgery should also aware the risk of possible conversion to the open procedure patient with a risk of gastric staple line disruption, bleeding and scarring. Past Medical History Past Medical History: Hypertension, Thyroid Disorder Additional Past Medical History / Comment(s): Hypothyroidism. Lt CTS, wearing brace. History of Any Multi-Drug Resistant Organisms: None Reported Past Surgical History: Bariatric Surgery, Tonsillectomy Additional Past Surgical History / Comment(s): LAP BAND (Port Replaced October 2018). Lap band removal 03-25-19, w/ lysis of adhesions. Past Anesthesia/Blood Transfusion Reactions: No Reported Reaction Smoking Status: Never smoker - Past Family History Mother Family Medical History: No Reported History Father Family Medical History: Diabetes Mellitus Medications and Allergies Home Medications Medication Instructions Recorded Confirmed Type Multivitamins, Thera [Multivitamin 1 tab PO DAILY 09/01/17 09/29/19 History (formulary)] Aspirin 81 mg PO DAILY 10/21/18 09/29/19 History Losartan Potassium [Cozaar] 100 mg PO QAM 10/21/18 09/29/19 History Levothyroxine Sodium 88 mcg PO QAM 03/22/19 09/29/19 History Allergies Allergy/AdvReac Type Severity Reaction Status Date / Time No Known Allergies Allergy Verified 10/04/19 06:19 Surgical - Exam Vital Signs Temp Pulse Resp BP Pulse Ox 96.6 F L 72 16 154/72 96 10/04/19 06:27 10/04/19 06:27 10/04/19 06:27 10/04/19 06:27 10/04/19 06:27 - General well developed, well nourished, no distress - Eyes PERRL - ENT normal pinna - Neck no masses - Respiratory normal expansion - Cardiovascular Rhythm: regular - Abdomen Well-healed midline scar Abdomen: soft, non tender Assessment and Plan Assessment: 46, BMI 40. I discussed patient family that she is extremely high risk for recurrent adhesions which were hard conversion to the open procedure.
[2019-10-04] MEDS: KETOROLAC 30 MG/ML 1 ML VIAL IVP SCH ×3 (10:55→23:19)
[2019-10-04] MEDS: HYDROmorphone 0.5 MG/0.5 ML SYRINGE IVP PRN ×2 (10:55→11:24)
[2019-10-04] MEDS: ALBUTEROL NEBULIZED 2.5 MG/3 ML INHALATION SCH ×3 (15:18→19:35)
[2019-10-04] MEDS: 0.9% NACL WITH KCL 20 MEQ/L 1,000 ML IV SCH ×3 (16:04→23:19)
[2019-10-04] MEDS: ENOXAPARIN 40 MG/0.4 ML SYRINGE SQ SCH (20:54)
[2019-10-04] MEDS: HYDROmorphone 1 MG/ML 1 ML SYRINGE IVP PRN (21:04)
--- NOTE | 2019-10-05 01:58 | CONS ---
CONSULTATION DATE OF SERVICE: 10/04/2019 REASON FOR CONSULTATION: Advice regarding hypertension and multiple medical issues requested by Dr. Mccollum. HISTORY OF PRESENT ILLNESS: This 64-year-old woman with a past medical history of hypertension, hypothyroidism, history of bariatric surgery, tonsillectomy, being followed by Dr. Pacheco in the outpatient setting underwent laparoscopic lysis of adhesions and sleeve gastrectomy and intraoperative EGD by Dr. Mccollum. The patient will be closely monitored at this time. There is no history of any fever, rigors. No history of headache, loss of consciousness or seizures at this time. PAST MEDICAL HISTORY: History of hypertension, hypothyroidism, history of bariatric surgery, tonsillectomy. MEDICATIONS: Medications prior to admission include home medications are: 1. Multivitamins 1 p.o. daily. 2. Cozaar 100 mg q.a.m. 3. Levothyroxine 88 mcg p.o. q.a.m. 4. Aspirin 81 mg p.o. daily. ALLERGIES: None. FAMILY HISTORY: No history of heart disease or strokes in the family. SOCIAL HISTORY: No history of smoking. No history of alcohol intake. REVIEW OF SYSTEMS: ENT: No diminished hearing or diminished vision. CARDIOVASCULAR SYSTEM: No angina or palpitations. RESPIRATORY SYSTEM: No cough or hemoptysis. GI: No nausea, vomiting. : No dysuria. NERVOUS SYSTEM: No numbness or weakness. ALLERGY/IMMUNOLOGY: No asthma or hayfever. MUSCULOSKELETAL: As mentioned earlier. HEMATOLOGY: No history of anemia. ENDOCRINE: Hypothyroidism. CONSTITUTIONAL: As mentioned earlier. DERMATOLOGY: Negative. RHEUMATOLOGY: Negative. PSYCHIATRY: Negative. PHYSICAL EXAMINATION: The patient is alert and oriented x3. Pulse 81, blood pressure 147/82, respiration 18, temperature 97.5, pulse ox 97% on 2 L. HEENT: Conjunctivae normal. NECK: No jugular venous distention. CARDIOVASCULAR: S1, S2 muffled. RESPIRATORY: Breath sounds diminished in the bases. A few scattered rhonchi. ABDOMEN: Soft. Status post surgery. LEGS: No edema, no swelling. NERVOUS SYSTEM: Higher function as mentioned earlier. Moves all 4 limbs. No focal motor or sensory deficits. LYMPHATICS: No lymphadenopathy of the neck, axillae or groin. SKIN: No ulcer, rash or bleeding. JOINTS: No active deforming arthropathy. LABS: The preop labs are CBC within normal limits. Chemistry showed creatinine 1.53 and glucose 148. Otherwise coronavirus negative. ASSESSMENT: 1. Status post laparoscopic lysis of adhesions, sleeve gastrectomy and intraoperative EGD for severe morbid obesity. 2. Increased creatinine and possible chronic kidney disease, stage III, prior to the admission. 3. Elevated random blood sugar. 4. Hypertension. 5. Hypothyroidism. 6. History of bariatric surgery. 7. History of lap band previously. 8. Obesity with body mass of 39.7. 9. FULL CODE. RECOMMENDATIONS AND DISCUSSION: This 64-year-old woman presented with multiple medical issues, at this time I would recommend continue with the current medication, DVT prophylaxis, incentive spirometry. I would also recommend baseline labs postoperatively. We will follow the patient closely with you and home medication may be continued once the patient is p.o. Thank you Dr. Mccollum for letting us participate in the care of this patient. DEANAL / CHELN: [id number] /
[2019-10-05] MEDS: HYDROmorphone 1 MG/ML 1 ML SYRINGE IVP PRN ×2 (04:22→16:32)
[2019-10-05] MEDS: KETOROLAC 30 MG/ML 1 ML VIAL IVP SCH ×4 (05:41→23:35)
[2019-10-05] MEDS: 0.9% NACL WITH KCL 20 MEQ/L 1,000 ML IV SCH ×3 (05:42→16:31)
[2019-10-05] MEDS: LACTATED RINGERS 1,000 ML IV SCH (05:42)
[2019-10-05] MEDS: LEVOTHYROXINE 88 MCG TAB PO SCH (07:09)
[2019-10-05] MEDS: ALBUTEROL NEBULIZED 2.5 MG/3 ML INHALATION SCH ×4 (08:56→19:27)
--- NOTE | 2019-10-05 09:43 | FL ---
EXAMINATION TYPE: FL UGI DATE OF EXAM: 10/05/2019 LIMITED UGI: CLINICAL HISTORY: Morbid Obesity, history of lap band removal few months earlier and gastric sleeve surgery yesterday. TECHNIQUE: Limited esophagram is performed utilizing 2 oz of Isovue-370. A total of 98 seconds of fl uoroscopic time was utilized during procedure. 38 spot images dated the packs. COMPARISON: None. FINDINGS: The patient swallowed contrast without difficulty or delay. Esophageal peristalsis shows mild dysmotility with a few abnormal secondary and tertiary contractions. There is good flow of cont rast along the diaphragmatic hiatus into proximal stomach and mild to moderate delay in flow into gas tric sleeve. Multiple episodes of reflux into the distal one half of the esophagus noted. There is th en more moderate delay in flow from distal anastomosis into pylorus and duodenal sweep. Patient noted to remain asymptomatic without increased nausea or vomiting. There is no evidence of contrast extrav asation to suggest leak. IMPRESSION: No evidence of leak status post recent gastric sleeve surgery. Mild to moderate obstructi on at the proximal and to greater degree at distal anastomosis are identified but patient noted to re main asymptomatic.
[2019-10-05] MEDS: ENOXAPARIN 40 MG/0.4 ML SYRINGE SQ SCH (09:57)
[2019-10-05] MEDS: LOSARTAN 50 MG TAB PO SCH (09:57)
[2019-10-05] MEDS: PANTOPRAZOLE 40 MG/10 ML VIAL IV SCH (09:57)
[2019-10-05 10:41] LABS: Basophils % (A) 0 %; Eosinophils % (A) 0 %; HCT 34.3 % (34.0-46.0); Hypochromasia Slight; Lymphocytes # (A) 1.9 k/uL (1.0-4.8); Lymphocytes % (A) 12 %; MCH 31.4 pg (25.0-35.0); MCHC 32.1 g/dL (31.0-37.0); MCV 97.9 fL (80.0-100.0); Mean Platelet Volume 7.6; Monocytes # (A) 0.6 k/uL (0-1.0); Monocytes % (A) 4 %; Neutrophils # (A) 13.5 k/uL (1.3-7.7); Neutrophils % (A) 84 %; Platelet Count 340 k/uL (150-450); RBC 3.51 m/uL (3.80-5.40); RDW 14.2 % (11.5-15.5); WBC 16.1 k/uL (3.8-10.6)
[2019-10-05 11:06] LABS: Albumin 3.6 g/dL (3.5-5.0); Calcium 8.5 mg/dL (8.4-10.2); Potassium 5.1 mmol/L (3.5-5.1); Total Bilirubin 0.5 mg/dL (0.2-1.3); Total Protein 6.6 g/dL (6.3-8.2)
[2019-10-05] MEDS: DEXAMETHASONE SOD PHOSPHATE 4 MG/ML 1 ML VIAL IV SCH ×3 (11:15→23:59)
--- NOTE | 2019-10-05 11:16 | P.PN ---
Subjective Progress Note Date: 10/05/19 Principal diagnosis: Morbid obesity Is a 64-year-old female who is status post sleeve gastric. Patient had her esophagram performed today. Esophagram shows a mild obstruction. There is no leak. Objective - Vital Signs Vital signs: Vital Signs Temp 98.6 F 10/05/19 07:00 Pulse 80 10/05/19 09:09 Resp 16 10/05/19 07:00 BP 119/65 10/05/19 07:00 Pulse Ox 95 10/05/19 08:56 Intake & Output 10/04/19 10/05/19 10/05/19 18:59 06:59 18:59 Intake Total 1250 1200 Output Total 100 600 Balance 1150 600 Intake: IV 1250 Intake, IV Titration 1200 Amount 0.9% NaCl with KCl 20 Meq 1200 /l 1,000 ml @ 150 mls/hr IV .[id number] [facility] Rx#: [id number] Oral 0 Output: Urine 600 Estimated Blood Loss 100 Other: Voiding Method Toilet # Voids 2 1 - Gastrointestinal Gastrointestinal Comment(s): Abdomen soft. Incision sites clean dry intact - Labs CBC & Chem 7: 10/05/19 09:42 10/05/19 09:42 Labs: Abnormal Lab Results - Last 24 Hours (Table) 10/05/19 10/05/19 Range/Units 09:42 09:42 WBC 16.1 H (3.8-10.6) k/uL RBC 3.51 L (3.80-5.40) m/uL Hgb 11.0 L (11.4-16.0) gm/dL Neutrophils # 13.5 H (1.3-7.7) k/uL Chloride 111 H (98-107) mmol/L Carbon Dioxide 19 L (22-30) mmol/L BUN 20 H (7-17) mg/dL Creatinine 1.75 H (0.52-1.04) mg/dL Glucose 129 H (74-99) mg/dL AST 117 H (14-36) U/L ALT 91 H (4-34) U/L Assessment and Plan Plan: Status post sleeve gastrectomy. Patient was started on clear liquid.
[2019-10-05 11:31] VITALS: BMI 39.6
--- NOTE | 2019-10-05 22:46 | PN ---
PROGRESS NOTE DATE OF SERVICE: 10/05/2019 This 64-year-old woman who was admitted after laparoscopic lysis of adhesions and sleeve gastrectomy is being closely monitored. No chest pain. No palpitations. No fever. Dr. Mccollum is following the patient closely. Upper GI series showed no evidence of any leak. No chest pain. No palpitations. No fever. PHYSICAL EXAMINATION: Alert and oriented x3. Pulse is 88, blood pressure 153/85, respiration 18, temperature normal, pulse ox 96% on 2 L. HEENT: Conjunctivae normal. NECK: No jugular venous distention. CARDIOVASCULAR SYSTEM: S1, S2 muffled. RESPIRATORY SYSTEM: Breath sounds diminished at the bases. No rhonchi. No crackles. ABDOMEN: Soft. Status post surgery. LEGS: No edema. No swelling. NERVOUS SYSTEM: No focal deficit. LABS: WBC 16.1, hemoglobin 11, sodium 142, potassium 5.1. Creatinine is 1.75. AST is 117, ALT is 91. ASSESSMENT: 1. Status post laparoscopic lysis of adhesions, sleeve gastrectomy, and intraoperative EGD for severe morbid obesity. 2. Increased creatinine with possible chronic kidney disease, stage 3, prior to admission. 3. Elevated random blood sugar. 4. Hypertension. 5. Hypothyroidism. 6. History of bariatric surgery. 7. History of lap band previously. 8. Obesity with body mass index 39.7. 9. FULL CODE. RECOMMENDATIONS AND DISCUSSION: I recommend to continue current medications, continue with the monitoring, symptomatic treatment. Otherwise, at this time repeat labs. Will repeat the renal functions and hepatic functions. Closely monitor with Surgery. Further recommendations to follow. MMODL / IJN: [id number] /
[2019-10-06] MEDS: 0.9% NACL WITH KCL 20 MEQ/L 1,000 ML IV SCH ×3 (02:01→22:53)
[2019-10-06] MEDS: LACTATED RINGERS 1,000 ML IV SCH (05:19)
[2019-10-06] MEDS: DEXAMETHASONE SOD PHOSPHATE 4 MG/ML 1 ML VIAL IV SCH ×4 (05:25→22:53)
[2019-10-06] MEDS: LEVOTHYROXINE 88 MCG TAB PO SCH (05:25)
[2019-10-06] MEDS: KETOROLAC 30 MG/ML 1 ML VIAL IVP SCH (05:25)
--- NOTE | 2019-10-06 07:23 | XR ---
EXAMINATION TYPE: XR chest 2V DATE OF EXAM: 10/06/2019 COMPARISON: NONE HISTORY: Shortness of breath TECHNIQUE: Frontal and lateral views of the chest are obtained. FINDINGS: Scattered senescent parenchymal changes noted. Hyperinflation compatible with COPD. Basilar infiltrates and or atelectasis noted. Heart size is stable. Mediastinal structures are stable and grossly unremarkable. No evidence for hilar prominence. Degenerative changes dorsal spine. IMPRESSION: 1. Basilar infiltrates and or atelectasis noted.
[2019-10-06] MEDS: PANTOPRAZOLE 40 MG/10 ML VIAL IV SCH (07:58)
[2019-10-06] MEDS: PIPERACILLIN-TAZOBACTAM 3.375 GM in SODIUM CHLORIDE 0.9% 100 ML IVPB SCH ×3 (07:58→22:58)
[2019-10-06] MEDS: LOSARTAN 50 MG TAB PO SCH (07:58)
[2019-10-06] MEDS: ENOXAPARIN 40 MG/0.4 ML SYRINGE SQ SCH (07:58)
[2019-10-06 08:15] LABS: Basophils % (A) 0 %; Eosinophils % (A) 0 %; HCT 33.3 % (34.0-46.0); HGB 10.2 gm/dL (11.4-16.0); Hypochromasia Slight; Lymphocytes # (A) 0.7 k/uL (1.0-4.8); Lymphocytes % (A) 4 %; MCH 29.9 pg (25.0-35.0); MCHC 30.7 g/dL (31.0-37.0); MCV 97.2 fL (80.0-100.0); Mean Platelet Volume 7.4; Monocytes # (A) 0.5 k/uL (0-1.0); Monocytes % (A) 3 %; Neutrophils # (A) 16.9 k/uL (1.3-7.7); Neutrophils % (A) 93 %; Platelet Count 286 k/uL (150-450); RBC 3.43 m/uL (3.80-5.40); RDW 14.4 % (11.5-15.5); WBC 18.2 k/uL (3.8-10.6)
[2019-10-06] MEDS: ALBUTEROL NEBULIZED 2.5 MG/3 ML INHALATION SCH ×4 (08:21→19:25)
[2019-10-06 08:31] LABS: Albumin 3.3 g/dL (3.5-5.0); Calcium 8.7 mg/dL (8.4-10.2); Potassium 5.2 mmol/L (3.5-5.1); Total Bilirubin 0.4 mg/dL (0.2-1.3); Total Protein 6.4 g/dL (6.3-8.2)
--- NOTE | 2019-10-06 09:14 | P.PN ---
Subjective Progress Note Date: 10/06/19 Principal diagnosis: Lysis of adhesions, sleeve gastrectomy The patient complaints of back pain last night. She denies any abdominal pain. She is tolerating her clear liquids. Objective - Vital Signs Vital signs: Vital Signs Temp 97.9 F 10/06/19 07:01 Pulse 88 10/06/19 08:36 Resp 14 10/06/19 07:01 BP 149/81 10/06/19 07:01 Pulse Ox 94 L 10/06/19 07:01 Intake & Output 10/05/19 10/06/19 10/06/19 18:59 06:59 18:59 Weight 101.7 kg Other: Voiding Method Toilet # Voids 1 2 - Gastrointestinal Gastrointestinal Comment(s): Abdomen soft. Incision site is clean dry and intact. - Labs CBC & Chem 7: 10/06/19 07:53 10/06/19 07:53 Labs: Abnormal Lab Results - Last 24 Hours (Table) 10/05/19 10/05/19 10/06/19 Range/Units 09:42 09:42 07:53 WBC 16.1 H 18.2 H (3.8-10.6) k/uL RBC 3.51 L 3.43 L (3.80-5.40) m/uL Hgb 11.0 L 10.2 L (11.4-16.0) gm/dL Hct 33.3 L (34.0-46.0) % MCHC 30.7 L (31.0-37.0) g/dL Neutrophils # 13.5 H 16.9 H (1.3-7.7) k/uL Lymphocytes # 0.7 L (1.0-4.8) k/uL Potassium (3.5-5.1) mmol/L Chloride 111 H (98-107) mmol/L Carbon Dioxide 19 L (22-30) mmol/L BUN 20 H (7-17) mg/dL Creatinine 1.75 H (0.52-1.04) mg/dL Glucose 129 H (74-99) mg/dL AST 117 H (14-36) U/L ALT 91 H (4-34) U/L Albumin (3.5-5.0) g/dL 10/06/19 Range/Units 07:53 WBC (3.8-10.6) k/uL RBC (3.80-5.40) m/uL Hgb (11.4-16.0) gm/dL Hct (34.0-46.0) % MCHC (31.0-37.0) g/dL Neutrophils # (1.3-7.7) k/uL Lymphocytes # (1.0-4.8) k/uL Potassium 5.2 H (3.5-5.1) mmol/L Chloride 113 H (98-107) mmol/L Carbon Dioxide 20 L (22-30) mmol/L BUN 21 H (7-17) mg/dL Creatinine 1.50 H (0.52-1.04) mg/dL Glucose 169 H (74-99) mg/dL AST 60 H (14-36) U/L ALT 53 H (4-34) U/L Albumin 3.3 L (3.5-5.0) g/dL Assessment and Plan Assessment: Status post sleeve gastrectomy with lysis of adhesions. Patient's white count is elevated 16,000. She'll be placed on Zosyn. She'll continue clear liquid diet.
[2019-10-06] MEDS: HYDROmorphone 1 MG/ML 1 ML SYRINGE IVP PRN ×2 (11:21→22:53)
--- NOTE | 2019-10-06 20:56 | PN ---
PROGRESS NOTE DATE OF SERVICE: 10/06/2019 This 64-year-old woman who was admitted after laparoscopic lysis of adhesions is being closely monitored. No chest pain. No palpitations. No fever. PHYSICAL EXAMINATION: Alert and oriented x3. Pulse 96, blood pressure 155/75, respiration 18, temperature 98.7, pulse ox 94% on 2 L. HEENT: Conjunctivae normal. NECK: No jugular venous distention. CARDIOVASCULAR SYSTEM: S1, S2 muffled. RESPIRATORY SYSTEM: Breath sounds diminished at the bases. A few scattered rhonchi. No crackles. ABDOMEN: Soft, non-tender. NERVOUS SYSTEM: No focal deficit. LABS: WBC 18, hemoglobin 10.2 and creatinine is 1.50. AST, ALT noted. 212.8. The chest x-ray shows bilateral atelectasis and infiltrates. PAST MEDICAL HISTORY: Reviewed. REVIEW OF SYSTEMS: CARDIOVASCULAR SYSTEM: No angina, palpitations. RESPIRATORY SYSTEM: As mentioned earlier. GI: As mentioned earlier. : No dysuria or retention. NERVOUS SYSTEM: No numbness, weakness. CURRENT MEDICATIONS: Reviewed. They include: 1. Ventolin. 2. Decadron. 3. Lovenox. 4. Levsin. 5. Lactated Ringer's. 6. Synthroid. 7. Cozaar. 8. Narcan. 9. Protonix. 10.Zosyn. ASSESSMENT: 1. Status post laparoscopic lysis of adhesions, sleeve gastrectomy and intraoperative esophagogastroduodenoscopy for severe morbid obesity. 2. Increased creatinine with possible chronic kidney disease, stage 3, prior to admission. 3. Bilateral atelectasis and infiltrates. 4. Elevated random blood sugar. 5. Hypertension. 6. Hypothyroidism. 7. History of bariatric surgery. 8. Increased white count. 9. History of laparoscopic band surgery previously. 10.Obesity with body mass index of 39.7. 11.FULL CODE. RECOMMENDATIONS AND DISCUSSION: I recommend to continue current medications, continue with the monitoring, symptomatic treatment. Continue with empiric antibiotics. Creatinine is 1.50. Recommend close followup. CRP is also elevated. Infectious Disease has been consulted. Will continue to monitor. Further recommendations to follow. MMODL / IJN: [id number] / MTDD
[2019-10-07] MEDS: LACTATED RINGERS 1,000 ML IV SCH (05:07)
[2019-10-07] MEDS: LEVOTHYROXINE 88 MCG TAB PO SCH (06:20)
[2019-10-07] MEDS: DEXAMETHASONE SOD PHOSPHATE 4 MG/ML 1 ML VIAL IV SCH ×5 (06:20→23:28)
--- NOTE | 2019-10-07 07:18 | P.CONS ---
History of Present Illness - Reason for Consult Consult date: 10/06/19 Worsening leukocytosis Requesting physician: Steven Mccollum - Chief Complaint Cough and sputum 2 days - History of Present Illness Patient is a 64-year-old female morbidly obese with a BMI of 40 patient has been electively admitted to the hospital for a sleeve gastrectomy patient did have procedure completed on 10/04/2019 this patient who did have laparoscopic lysis of adhesion sleeve gastrectomy and intraoperative EGD, patient has been afebrile throughout her hospital stay. They want the patient did have a CBC white count was 16,000 and postop day 2 patient was noticed to have a white count up to 18,000 patient has been complaining of some cough which has been mild to moderate intensity with occasional sputum no hemoptysis and no pleuritic chest pain chest x-ray showing some atelectasis/infiltrate the patient has been started on Zosyn and infectious disease was consulted for further management of antibiotic therapy. Patient currently denies having any fever or chills and denies having any headache or URI symptoms she did have a cough as mentioned above denies having any nausea no vomiting denies any abdominal pain no diarrhea and no urinary symptoms Review of Systems Positive point has been mentioned in the HPI rest of the systems are negative Past Medical History Past Medical History: Hypertension, Thyroid Disorder Additional Past Medical History / Comment(s): Hypothyroidism. Lt CTS, wearing brace. History of Any Multi-Drug Resistant Organisms: None Reported Past Surgical History: Bariatric Surgery, Tonsillectomy Additional Past Surgical History / Comment(s): LAP BAND (Port Replaced October 2018). Lap band removal 03-25-19, w/ lysis of adhesions. Past Anesthesia/Blood Transfusion Reactions: No Reported Reaction Smoking Status: Never smoker - Past Family History Mother Family Medical History: No Reported History Father Family Medical History: Diabetes Mellitus Medications and Allergies Home Medications Medication Instructions Recorded Confirmed Type Multivitamins, Thera [Multivitamin 1 tab PO DAILY 09/01/17 09/29/19 History (formulary)] Aspirin 81 mg PO DAILY 10/21/18 09/29/19 History Losartan Potassium [Cozaar] 100 mg PO QAM 10/21/18 09/29/19 History Levothyroxine Sodium 88 mcg PO QAM 03/22/19 09/29/19 History Allergies Allergy/AdvReac Type Severity Reaction Status Date / Time No Known Allergies Allergy Verified 10/04/19 06:19 Physical Exam Vitals: Vital Signs Temp Pulse Pulse Resp BP Pulse Ox 10/06/19 14:19 98.7 F 85 18 155/75 94 L 10/06/19 12:22 97 10/06/19 12:10 90 10/06/19 08:36 88 10/06/19 08:23 81 10/06/19 07:01 97.9 F 76 14 149/81 94 L 10/06/19 02:00 97.7 F 79 154/90 94 L 10/05/19 19:40 86 16 10/05/19 19:30 88 16 98 10/05/19 19:25 99.0 F 80 149/85 97 10/05/19 16:14 92 18 153/85 93 L Intake and Output 10/06/19 10/06/19 10/06/19 06:59 14:59 22:59 Other: # Voids 2 1 GENERAL DESCRIPTION: An elderly female up in the chair, no distress. No tachypnea or accessory muscle of respiration use. HEENT: Shows Pallor , no scleral icterus. Oral mucous membrane is dry. No pharyngeal erythema or thrush NECK: Trachea central, no thyromegaly. LUNGS: Unlabored breathing. Decreased breath sound at the base. No wheeze or crackle. HEART: S1, S2, regular rate and rhythm. No loud murmur ABDOMEN: Soft, no tenderness , guarding or rigidity, no organomegaly EXTREMITIES: No edema of feet. SKIN: No rash, no masses palpable. NEUROLOGICAL: The patient is awake, alert, oriented x3, mood and affect normal. Results CBC & Chem 7: 10/06/19 07:53 10/06/19 07:53 Labs: Abnormal Lab Results - Last 24 Hours (Table) 10/06/19 10/06/19 Range/Units 07:53 07:53 WBC 18.2 H (3.8-10.6) k/uL RBC 3.43 L (3.80-5.40) m/uL Hgb 10.2 L (11.4-16.0) gm/dL Hct 33.3 L (34.0-46.0) % MCHC 30.7 L (31.0-37.0) g/dL Neutrophils # 16.9 H (1.3-7.7) k/uL Lymphocytes # 0.7 L (1.0-4.8) k/uL Potassium 5.2 H (3.5-5.1) mmol/L Chloride 113 H (98-107) mmol/L Carbon Dioxide 20 L (22-30) mmol/L BUN 21 H (7-17) mg/dL Creatinine 1.50 H (0.52-1.04) mg/dL Glucose 169 H (74-99) mg/dL AST 60 H (14-36) U/L ALT 53 H (4-34) U/L Albumin 3.3 L (3.5-5.0) g/dL Assessment and Plan Assessment: 1-patient with worsening leukocytosis in this patient has been electively admitted to the hospital for sleep gastrectomy procedure has been completed on 10/03/2020 with lysis of adhesions number the worsening of the white count and patient did have respiratory symptoms with concern for possible nosocomial pneumonia currently with no other signs and symptoms of infection at any other part of the body (1) Leukocytosis Current Visit: Yes Status: Acute Code(s): D72.829 - ELEVATED WHITE BLOOD CELL COUNT, UNSPECIFIED SNOMED Code(s): 968560653 (2) Pneumonia Current Visit: Yes Status: Acute Code(s): J18.9 - PNEUMONIA, UNSPECIFIED ORGANISM SNOMED Code(s): 754228569 Plan: 1- blood cultures 2 and will obtain sputum for Gram stain and culture 2-check a CRP level 3-Zosyn 3.375 g every 8 hours We will follow on clinical condition and cultures to further adjust medication if needed Thank you for this consultation will follow this patient with you Time with Patient: Greater than 30
[2019-10-07] MEDS: ALBUTEROL NEBULIZED 2.5 MG/3 ML INHALATION SCH ×4 (08:17→18:57)
[2019-10-07] MEDS: LOSARTAN 50 MG TAB PO SCH (09:04)
[2019-10-07] MEDS: PIPERACILLIN-TAZOBACTAM 3.375 GM in SODIUM CHLORIDE 0.9% 100 ML IVPB SCH ×3 (09:04→23:27)
[2019-10-07] MEDS: ENOXAPARIN 40 MG/0.4 ML SYRINGE SQ SCH (09:04)
[2019-10-07] MEDS: PANTOPRAZOLE 40 MG/10 ML VIAL IV SCH (09:04)
[2019-10-07] MEDS: 0.9% NACL WITH KCL 20 MEQ/L 1,000 ML IV SCH ×2 (10:35→12:05)
[2019-10-07 10:55] LABS: Basophils % (A) 0 %; Eosinophils % (A) 0 %; HCT 31.5 % (34.0-46.0); HGB 9.5 gm/dL (11.4-16.0); Hypochromasia Slight; Lymphocytes # (A) 0.8 k/uL (1.0-4.8); Lymphocytes % (A) 4 %; MCH 29.9 pg (25.0-35.0); MCHC 30.3 g/dL (31.0-37.0); MCV 98.5 fL (80.0-100.0); Mean Platelet Volume 7.5; Monocytes # (A) 0.5 k/uL (0-1.0); Monocytes % (A) 3 %; Neutrophils # (A) 16.8 k/uL (1.3-7.7); Neutrophils % (A) 93 %; Platelet Count 345 k/uL (150-450); RBC 3.19 m/uL (3.80-5.40); RDW 14.3 % (11.5-15.5); WBC 18.2 k/uL (3.8-10.6)
[2019-10-07 11:14] LABS: Albumin 3.2 g/dL (3.5-5.0); Calcium 8.7 mg/dL (8.4-10.2); Potassium 5.4 mmol/L (3.5-5.1); Total Bilirubin 0.3 mg/dL (0.2-1.3); Total Protein 6.3 g/dL (6.3-8.2)
[2019-10-07] MEDS: HYDROmorphone 1 MG/ML 1 ML SYRINGE IVP PRN ×3 (14:53→23:37)
--- NOTE | 2019-10-07 16:21 | P.PN ---
Progress Note - Text Progress Note Date: 10/07/19 the patient states she feels wel She wants to go home. Her white count remained 18,000 On exam her vital signs are sle. Incision is clean dry and intact. There is no significant pain. Status post post-sleeve gastrectomy. Patient will continue to reive IV antibiotics.t
--- NOTE | 2019-10-07 16:58 | PN ---
PROGRESS NOTE DATE OF SERVICE: 10/07/2019 This 64-year-old woman who was admitted after laparoscopic lysis of adhesions also had elevated WBC. The patient is being closely monitored. The patient is on IV antibiotics per Dr. Fabian. A chest x-ray done showed bibasilar infiltrates. Dr. Fabian is planning one more day of IV antibiotics. PHYSICAL EXAMINATION: Alert and oriented x3. The pulse is 89, blood pressure 160/87, respiration 20, temperature normal, pulse ox normal. HEENT: Conjunctivae normal. NECK: No jugular venous distention. CARDIOVASCULAR SYSTEM: S1, S2 muffled. RESPIRATORY SYSTEM: Breath sounds diminished at the bases. A few scattered rhonchi. ABDOMEN: Soft, non-tender. LEGS: No edema. No swelling. NERVOUS SYSTEM: No focal deficit. LABS: WBC 18.2, hemoglobin 9.5, sodium 140. Potassium 5.4. Creatinine is 1.57. ASSESSMENT: 1. Status post laparoscopic lysis of adhesions, sleeve gastrectomy and intraoperative esophagogastroduodenoscopy for severe morbid obesity. 2. Increased creatinine with possible chronic kidney disease, stage 3, prior to admission. 3. Increased white count with possible bilateral pneumonia. 4. Elevated random blood sugar. 5. Hypertension. 6. Hypothyroidism. 7. History of bariatric surgery. 8. Increased white count. 9. History of laparoscopic band surgery previously. 10.Obesity with body mass index of 39.7. 11.Hyperkalemia. 12.FULL CODE. RECOMMENDATIONS AND DISCUSSION: In this 64-year-old woman who presented with multiple complex medical issues, I recommend to continue current medications, continue with the monitoring, symptomatic treatment. Repeat labs. Otherwise, I would recommend repeat electrolytes. Continue the antibiotics. The patient is currently on IV Zosyn. Closely follow. LFTs are improved. Further recommendations to follow. MMODL / IJN: [id number] /
--- NOTE | 2019-10-07 17:40 | PN ---
PROGRESS NOTE DATE OF SERVICE: 10/07/2019 REASON FOR FOLLOWUP: Leukocytosis and a question of pneumonia. INTERVAL HISTORY: The patient is currently afebrile. The patient is breathing comfortably. Denies having any chest pain or shortness of breath. Did have some cough, not bringing up any sputum. No nausea, no vomiting, no abdominal pain or diarrhea. PHYSICAL EXAMINATION: Her blood pressure is 176/100 with a pulse of 79, temperature 97.6. She is 95% on room air. General description is an elderly female up in the chair in no distress. RESPIRATORY SYSTEM: Unlabored breathing with decreased breath sounds at the base. No wheeze. HEART: S1, S2. Regular rate and rhythm. ABDOMEN: Soft. No tenderness. LABS: Hemoglobin 9.5, white count 18.2, BUN of 28, creatinine 1.57. DIAGNOSTIC IMPRESSION AND PLAN: Patient with leukocytosis which is likely multifactorial. This patient has been receiving Decadron. Also with a possible component of dehydration with elevated BUN and creatinine. Hemoglobin is trending down. Dexamethasone has been put on hold. Advise gentle IV fluid and repeating her CBC tomorrow and continue with supportive care. MMODL / IJN: [id number] /
[2019-10-08] MEDS: LEVOTHYROXINE 88 MCG TAB PO SCH (05:52)
[2019-10-08] MEDS: PIPERACILLIN-TAZOBACTAM 3.375 GM in SODIUM CHLORIDE 0.9% 100 ML IVPB SCH ×4 (08:23→23:30)
[2019-10-08] MEDS: LOSARTAN 50 MG TAB PO SCH (08:23)
[2019-10-08] MEDS: PANTOPRAZOLE 40 MG/10 ML VIAL IV SCH (08:23)
[2019-10-08] MEDS: ENOXAPARIN 40 MG/0.4 ML SYRINGE SQ SCH (08:23)
[2019-10-08] MEDS: ALBUTEROL NEBULIZED 2.5 MG/3 ML INHALATION SCH ×4 (08:29→19:55)
--- NOTE | 2019-10-08 10:02 | P.PN ---
Progress Note - Text Progress Note Date: 10/08/19 Patient resting comfortably rebound. She states she feels well. On exam her vital signs are stable. Abdomen soft. Incision site is clean dry and intact. Status post sleeve gastrectomy. Patient's leukocytosis is being treated. We do not have her labs back from today. We discussed with discharge home tomorrow if her white count is decreasing.
[2019-10-08 10:23] LABS: Basophils % (A) 0 %; Eosinophils % (A) 0 %; HCT 32.1 % (34.0-46.0); HGB 10.2 gm/dL (11.4-16.0); Hypochromasia Slight; Lymphocytes # (A) 1.8 k/uL (1.0-4.8); Lymphocytes % (A) 13 %; MCH 31.2 pg (25.0-35.0); MCHC 31.7 g/dL (31.0-37.0); MCV 98.3 fL (80.0-100.0); Mean Platelet Volume 7.5; Monocytes # (A) 0.7 k/uL (0-1.0); Monocytes % (A) 5 %; Neutrophils # (A) 11.1 k/uL (1.3-7.7); Neutrophils % (A) 81 %; Platelet Count 399 k/uL (150-450); RBC 3.26 m/uL (3.80-5.40); RDW 14.4 % (11.5-15.5); WBC 13.8 k/uL (3.8-10.6)
[2019-10-08 10:37] LABS: Albumin 3.3 g/dL (3.5-5.0); Calcium 8.5 mg/dL (8.4-10.2); Total Bilirubin 0.4 mg/dL (0.2-1.3); Total Protein 6.4 g/dL (6.3-8.2)
[2019-10-08] MEDS: DEXAMETHASONE SOD PHOSPHATE 4 MG/ML 1 ML VIAL IV SCH ×3 (11:18→22:54)
[2019-10-08] MEDS: HYDROmorphone 1 MG/ML 1 ML SYRINGE IVP PRN ×2 (16:11→23:30)
--- NOTE | 2019-10-08 22:43 | PN ---
PROGRESS NOTE DATE OF SERVICE: 10/08/2019 This 64-year-old woman was admitted after laparoscopic lysis of adhesions on empiric antibiotics also. No chest pain. No palpitations. No fever. The cultures are negative so far. PHYSICAL EXAMINATION: Alert and oriented x3. Pulse is 80, blood pressure 155/95, respiration 18, temp 98.2, pulse ox 98% on room air. HEENT: Conjunctivae normal. Oral mucosa moist. NECK: No jugular venous distention. No lymph node enlargement. CARDIOVASCULAR: S1, S2, muffled. No S3, no S4, RESPIRATORY: Diminished breath sounds at the bases. No rhonchi, no crackles. ABDOMEN: Soft, status post surgery. LEGS: No edema, no swelling. NERVOUS SYSTEM: No focal motor or sensory deficits. LAB STUDIES: WBC 13.9, hemoglobin 10.2, sodium 139, creatinine 1.57. ASSESSMENT: 1. Status post laparoscopic lysis of adhesions, sleeve gastrectomy, intraoperative EGD and as well as for severe morbid obesity. 2. Increased creatinine with possible chronic kidney stage 3 prior to admission. 3. Increased WBC with possible bilateral pneumonia. 4. Elevated random blood sugar. 5. Hypertension. 6. Hypothyroidism. 7. History of bariatric surgery. 8. Increased WBC. 9. History of laparoscopic band surgery previously. 10.Obesity with body mass index of 39.7. 11.Hyperkalemia. 12.FULL CODE. RECOMMENDATIONS AND DISCUSSION: Recommend to continue current management, continue symptomatic treatment. Hyperkalemia is resolved. Will closely monitor. Empiric antibiotics. Guarded prognosis. Further recommendations to follow. MMODL / IJN: [id number] /
--- NOTE | 2019-10-08 22:49 | PN ---
PROGRESS NOTE DATE OF SERVICE: 10/08/2019 REASON FOR FOLLOWUP: Leukocytosis. INTERVAL HISTORY: The patient is currently afebrile. The patient is breathing more comfortably. Denies having any chest pain or shortness of breath or cough. No nausea, no vomiting. No abdominal pain or diarrhea. PHYSICAL EXAMINATION: Blood pressure 154/95 with a pulse of 80, temperature 98.3. She is 96% on room air. General description is an elderly female lying in bed in no distress. RESPIRATORY SYSTEM: Unlabored breathing. Clear to auscultation anteriorly. HEART: S1, S2. Regular rate and rhythm. ABDOMEN: Soft. No tenderness. LABS: Hemoglobin is 10.2, white count 13.8, creatinine 1.57. Blood culture has been negative. DIAGNOSTIC IMPRESSION AND PLAN: Patient with leukocytosis, likely multifactorial; possible steroid effect with a question of pneumonia. Patient is covered with Zosyn. White count has shown a downward trend. If she continues to improve, to finish therapy with oral Avelox, oral Augmentin and close outpatient followup. MMODL / IJN: [id number] /
[2019-10-09 02:37] VITALS: TEMP 98.4
[2019-10-09] MEDS: LEVOTHYROXINE 88 MCG TAB PO SCH (06:20)
[2019-10-09] MEDS: PIPERACILLIN-TAZOBACTAM 3.375 GM in SODIUM CHLORIDE 0.9% 100 ML IVPB SCH (07:35)
[2019-10-09] MEDS: PANTOPRAZOLE 40 MG/10 ML VIAL IV SCH (07:36)
[2019-10-09] MEDS: ENOXAPARIN 40 MG/0.4 ML SYRINGE SQ SCH (07:36)
[2019-10-09] MEDS: LOSARTAN 50 MG TAB PO SCH (07:37)
[2019-10-09] MEDS: HYDROmorphone 1 MG/ML 1 ML SYRINGE IVP PRN (07:47)
[2019-10-09] MEDS: ALBUTEROL NEBULIZED 2.5 MG/3 ML INHALATION SCH ×2 (07:57→11:11)
[2019-10-09 09:39] VITALS: BP 164/86; RESP 17
[2019-10-09 11:24] VITALS: PULSE 72
--- NOTE | 2019-10-09 11:42 | P.DS ---
Providers Date of admission: 10/04/19 05:59 Expected date of discharge: 10/09/19 Attending physician: Steven Mccollum Consults: 10/04/19 10:00 Consult Physician Routine Consulting Provider: Caleb Soto Consult Reason/Comments: med manage Do you want consulting provider notified?: Yes 10/06/19 11:32 Consult Physician Routine Consulting Provider: Oscar Fabian Consult Reason/Comments: Medical management, leukocytosis Do you want consulting provider notified?: Yes [facility] Course: This a 64-year-old female who underwent lysis of adhesions and sleeve gastrectomy. Patient's hospital course was relatively uneventful. Please see chart for details. Procedures: Sleeve gastrectomy Patient Condition at Discharge: Good Plan - Discharge Summary Discharge Rx Participant: Yes New Discharge Prescriptions: New Docusate [Colace] 100 mg PO BID #20 capsule HYDROcodone/APAP 5-325MG [[place] 5-325] 1 tab PO Q6HR PRN #10 tab PRN Reason: Pain No Action Multivitamins, Thera [Multivitamin (formulary)] 1 tab PO DAILY Losartan Potassium [Cozaar] 100 mg PO QAM Aspirin 81 mg PO DAILY Levothyroxine Sodium 88 mcg PO QAM Discharge Medication List Multivitamins, Thera [Multivitamin (formulary)] 1 tab PO DAILY 09/01/17 [History] Aspirin 81 mg PO DAILY 10/21/18 [History] Losartan Potassium [Cozaar] 100 mg PO QAM 10/21/18 [History] Levothyroxine Sodium 88 mcg PO QAM 03/22/19 [History] Docusate [Colace] 100 mg PO BID #20 capsule 10/09/19 [Rx] HYDROcodone/APAP 5-325MG [[place] 5-325] 1 tab PO Q6HR PRN #10 tab 10/09/19 [Rx] Follow up [facility]ment(s[facility]Ref[facility] [place] [place] [facility] [place] [facility] Discharge Disposition: HOME SELF-CARE
[2019-10-09] MEDS: DEXAMETHASONE SOD PHOSPHATE 4 MG/ML 1 ML VIAL IV SCH (14:03)
--- NOTE | 2019-10-09 15:32 | PN ---
PROGRESS NOTE DATE OF SERVICE: 10/09/2019 REASON FOR FOLLOWUP: Leukocytosis, possible reactive. INTERVAL HISTORY: Patient is currently afebrile. The patient is breathing comfortably. Denies having any chest pain. No shortness of breath or cough. No nausea, vomiting. No abdominal pain. Has been tolerating her diet and no diarrhea. PHYSICAL EXAMINATION: Blood pressure 164/86, pulse of 79, temperature 98.4. She is 92% on room air. General description is an elderly female up in the chair in no distress. Respiratory system: Unlabored breathing, decreased breath sounds at the base. No wheeze. Heart S1, S2. Regular rate and rhythm. Abdomen soft, no tenderness. LABS: No new labs have been obtained. Repeat blood culture has been negative. DIAGNOSTIC IMPRESSION AND PLAN: Patient with leukocytosis post gastric sleeve surgery with concern for possible reactive as the patient has no fever and culture remains to be negative. Antibiotic has been discontinued by the surgeon. Recommend to monitor the patient closely off antibiotic therapy. She has been advised if any fever or abdominal pain or any worsening respiratory symptoms to let us know. Otherwise, to follow with surgeon. MMODL / IJN: [id number] /
--- NOTE | 2019-10-09 20:02 | PN ---
PROGRESS NOTE DATE OF SERVICE: 10/09/2019 This 64-year-old lady was admitted with laparoscopic lysis of adhesions is improving significantly. No chest pain. No palpitations. No fever. PHYSICAL EXAMINATION: Alert and oriented x3. Pulse is 76, blood pressure is 164/87, respiration 17, temperature 98.4, pulse ox 92% on room air. HEENT: Conjunctivae normal. Oral mucosa moist. NECK: No jugular venous distention. No lymph node enlargement. CARDIOVASCULAR: S1, S2, muffled. No S3, no S4, RESPIRATORY: Diminished breath sounds at the bases. Scattered rhonchi, no crackles. ABDOMEN: Soft, nontender. LEGS: No edema, no swelling. NERVOUS SYSTEM: No focal deficits. LABS: Sodium 139, WBC 13.8, hemoglobin 10.2, creatinine is 1.57, albumin is 3.3. ASSESSMENT: 1. Status post laparoscopic lysis of adhesions, sleeve gastrectomy, intraoperative EGD for severe morbid obesity. 2. Increased creatinine with possible chronic kidney disease stage 3 prior to admission. 3. Increased WBC, possible bilateral pneumonia, improved. 4. Elevated random blood glucose. 5. Hypertension. 6. Hypothyroidism. 7. History of bariatric surgery. 8. Increased WBC. 9. History of laparoscopic band surgery previously. 10.Obesity with body mass index of 39.7. 11.Hyperkalemia. 12.FULL CODE. RECOMMENDATIONS AND DISCUSSION: Recommend to continue current medications, continue to monitor, symptomatic treatment. Otherwise, incentive spirometry, antibiotics per Infectious Disease. Closely follow with primary physician in the outpatient setting. The rest of the recommendations per Surgery. Further recommendations to follow. MMODL / IJN: [id number] /
== END 2019-10-09 13:53 | disposition home or self-care (01) | DRG 619 ==
LOC: 2ORMAIN 05:59 → 4SSUR 09:51
PROVIDERS: ADMIT Surgery; ATTEND Surgery
DX: E66.01 Morbid (severe) obesity due to excess calories (principal); J18.9 Pneumonia, unspecified organism; J98.11 Atelectasis; Z68.41 Body mass index [BMI] 40.0-44.9, adult; E03.9 Hypothyroidism, unspecified; E87.5 Hyperkalemia; N18.3 Chronic kidney disease, stage 3 (moderate); I10 Essential (primary) hypertension; Z83.3 Family history of diabetes mellitus; Z79.82 Long term (current) use of aspirin
CPT/HCPCS: 71046; 74240; 80053; 83735; 84100; 85025; 86140; 87040; 88307; 94640; 94760; 94762

== ENCOUNTER → 2019-10-11 | Outpatient (CLI) | payer MEDICARE ==
[2019-10-11 15:04] VITALS: BP 123/82; PULSE 64; TEMP 98.1; BMI 38.2
--- NOTE | 2019-10-11 15:58 | P.HPBAR ---
Bariatric H&P - History & Physicial H&P Date: 10/11/19 History & Physicial: Visit/CC: sleeve follow up Patient initial contact: Initial weight: 95.708 kg Initial weight in pounds: 211.00 Height: 5 ft 3 in Initial BMI: 37.3 Last weight: Current weight: 97.976 kg Current weight in pounds: 216.00 Current BMI: 38.2 [place] body weight (based on NIH guidelines): 52.163 kg Excess body weight loss: The patient is a 64 year-old F who presents for Bariatric Assessment. Patient presents today for gastric sleeve follow-up. She is doing quite well. Past Medical History Past Medical History: Hypertension, Thyroid Disorder Additional Past Medical History / Comment(s): Hypothyroidism. Lt CTS, wearing brace. History of Any Multi-Drug Resistant Organisms: None Reported Past Surgical History: Bariatric Surgery, Tonsillectomy Additional Past Surgical History / Comment(s): LAP BAND (Port Replaced October 2018). Lap band removal 03-25-19, w/ lysis of adhesions. sleeve gastrectomy 10-04-19 Past Anesthesia/Blood Transfusion Reactions: No Reported Reaction Smoking Status: Never smoker - Past Family History Mother Family Medical History: No Reported History Father Family Medical History: Diabetes Mellitus Surgical - Exam Vital Signs Temp Pulse BP 98.1 F 64 123/82 10/11/19 15:02 10/11/19 15:02 10/11/19 15:02 - General well developed, well nourished, no distress - Eyes PERRL - ENT normal pinna - Neck no masses - Respiratory normal expansion - Cardiovascular Rhythm: regular - Abdomen Incision site is clean dry intact. Abdomen: soft, non tender Bariatric Assessment & Plan Plan: Status post sleeve yesterday. Patient will have half her darcy removed today in the office. Bariatric Checklist Checklist: Plan: Checklist: EGD: 1. Hiatal hernia: 2. H. Pylori: HgbA1c: Vitamin D: Smoking: Never smoker Primary care physician referral: dr kim Psychiatry clearance: Cardiology clearance: Sleep study: Diet journal: VTE risk score: VTE risk level: Rehab needs at discharge:
== END | disposition home or self-care (01) ==
LOC: BARWHC3 13:53
PROVIDERS: ATTEND Surgery
DX: E66.01 Morbid (severe) obesity due to excess calories (principal); Z68.38 Body mass index [BMI] 38.0-38.9, adult; Z98.84 Bariatric surgery status
CPT/HCPCS: 97803; G0463; 99211

== ENCOUNTER → 2019-10-18 | Outpatient (CLI) | payer MEDICARE ==
--- NOTE | 2019-10-18 13:32 | P.HPBAR ---
Bariatric H&P - History & Physicial H&P Date: 10/18/19 History & Physicial: Visit/CC: Patient initial contact: Initial weight: 95.708 kg Initial weight in pounds: Height: Initial BMI: Last weight: 216 Current weight: 210 Current weight in pounds: Current BMI: [place] body weight (based on NIH guidelines): Excess body weight loss: The patient is a 64 year-old F who presents for Bariatric Assessment. Patient presents today for sleeve gastrectomy follow-up. She is doing quite well. She's had minimal GERD. Past Medical History Past Medical History: Hypertension, Thyroid Disorder Additional Past Medical History / Comment(s): Hypothyroidism. Lt CTS, wearing brace. History of Any Multi-Drug Resistant Organisms: None Reported Past Surgical History: Bariatric Surgery, Tonsillectomy Additional Past Surgical History / Comment(s): LAP BAND (Port Replaced October 2018). Lap band removal 03-25-19, w/ lysis of adhesions. sleeve gastrectomy 10-04-19 Past Anesthesia/Blood Transfusion Reactions: No Reported Reaction Smoking Status: Never smoker - Past Family History Mother Family Medical History: No Reported History Father Family Medical History: Diabetes Mellitus Surgical - Exam - General well developed, well nourished, no distress - Eyes PERRL - ENT normal pinna - Neck no masses - Respiratory normal expansion - Cardiovascular Rhythm: regular - Abdomen Incision clean dry and intact Abdomen: soft Bariatric Assessment & Plan Plan: The patient's darcy removed in the office today. Her GERD is minimal be observed. She'll follow-up in 2 weeks. Bariatric Checklist Checklist: Plan: Checklist: EGD: 1. Hiatal hernia: 2. H. Pylori: HgbA1c: Vitamin D: Smoking: Never smoker Primary care physician referral: dr kim Psychiatry clearance: Cardiology clearance: Sleep study: Diet journal: VTE risk score: VTE risk level: Rehab needs at discharge:
[2019-10-18 13:50] VITALS: BP 125/83; PULSE 80; TEMP 98.1; BMI 37.2
== END | disposition home or self-care (01) ==
LOC: BARWHC3 13:07
PROVIDERS: ATTEND Surgery
DX: Z48.815 Encounter for surgical aftercare following surgery on the digestive system (principal); K21.9 Gastro-esophageal reflux disease without esophagitis; Z98.84 Bariatric surgery status
CPT/HCPCS: 99211

== ENCOUNTER → 2019-11-01 | Outpatient (CLI) | payer MEDICARE ==
[2019-11-01 13:41] VITALS: BP 113/76; PULSE 72; RESP 16; TEMP 98.1; BMI 36.1
--- NOTE | 2019-11-08 13:33 | P.HPBAR ---
Bariatric H&P - History & Physicial H&P Date: 11/01/19 History & Physicial: Visit/CC: f\u Patient initial contact: Initial weight: 95.708 kg Initial weight in pounds: 211.00 Height: 5 ft 3 in Initial BMI: 37.3 Last weight: Current weight: 92.533 kg Current weight in pounds: 204.00 Current BMI: 36.1 [place] body weight (based on NIH guidelines): 52.163 kg Excess body weight loss: 7.2% The patient is a 64 year-old F who presents for Bariatric Assessment. Patient presents today for sleeve gastrectomy follow-up. She is proximal to 4 weeks postop. She is doing well. She's had some minimal GERD. She denies any significant abdominal pain. Past Medical History Past Medical History: Hypertension, Thyroid Disorder Additional Past Medical History / Comment(s): Hypothyroidism. Lt CTS, wearing brace. History of Any Multi-Drug Resistant Organisms: None Reported Past Surgical History: Bariatric Surgery, Tonsillectomy Additional Past Surgical History / Comment(s): LAP BAND (Port Replaced October 2018). Lap band removal 03-25-19, w/ lysis of adhesions. sleeve gastrectomy 10-04-19 Past Anesthesia/Blood Transfusion Reactions: No Reported Reaction Past Psychological History: No Psychological Hx Reported Smoking Status: Unknown if ever smoked Past Alcohol Use History: None Reported Past Drug Use History: None Reported - Past Family History Mother Family Medical History: No Reported History Father Family Medical History: Diabetes Mellitus Surgical - Exam Vital Signs Temp Pulse Resp BP 98.1 F 72 16 113/76 11/01/19 13:39 11/01/19 13:39 11/01/19 13:39 11/01/19 13:39 - General well developed, well nourished, no distress - Eyes PERRL - ENT normal pinna - Neck no masses - Respiratory normal expansion - Cardiovascular Rhythm: regular - Abdomen Abdomen: soft, non tender Bariatric Assessment & Plan Plan: Status post sleeve history. Patient did well. Her crit is minimal will be observed she'll follow-up in 4 weeks. Bariatric Checklist Checklist: Plan: Checklist: EGD: 1. Hiatal hernia: 2. H. Pylori: HgbA1c: Vitamin D: Smoking: Never smoker Primary care physician referral: dr kim Psychiatry clearance: Cardiology clearance: Sleep study: Diet journal: VTE risk score: VTE risk level: Rehab needs at discharge:
== END | disposition home or self-care (01) ==
LOC: BARWHC3 13:16
PROVIDERS: ATTEND Surgery
DX: E66.01 Morbid (severe) obesity due to excess calories (principal); Z71.3 Dietary counseling and surveillance; Z68.36 Body mass index [BMI] 36.0-36.9, adult; Z98.84 Bariatric surgery status
CPT/HCPCS: 97803; G0463; 99211

== ENCOUNTER → 2019-11-15 | Outpatient (CLI) | payer MEDICARE ==
[2019-11-15 13:34] VITALS: BP 129/84; PULSE 78; TEMP 98.2; BMI 35.2
--- NOTE | 2019-11-15 14:16 | P.HPBAR ---
Bariatric H&P - History & Physicial H&P Date: 11/15/19 History & Physicial: Visit/CC: sleeve follow up Patient initial contact: Initial weight: 95.708 kg Initial weight in pounds: 211.00 Height: 5 ft 3 in Initial BMI: 37.3 Last weight: Current weight: 90.265 kg Current weight in pounds: 199.00 Current BMI: 35.2 [place] body weight (based on NIH guidelines): 52.163 kg Excess body weight loss: 12.5% The patient is a 64 year-old F who presents for Bariatric Assessment. Patient rents today for sleeve gastrectomy follow-up. She has a mild with GERD. She has no real complaints. She is tolerating her diet. She has lost another 5 pounds since her last visit. Past Medical History Past Medical History: Hypertension, Thyroid Disorder Additional Past Medical History / Comment(s): Hypothyroidism. Lt CTS, wearing brace. History of Any Multi-Drug Resistant Organisms: None Reported Past Surgical History: Bariatric Surgery, Tonsillectomy Additional Past Surgical History / Comment(s): LAP BAND (Port Replaced October 2018). Lap band removal 03-25-19, w/ lysis of adhesions. sleeve gastrectomy 10-04-19 Past Anesthesia/Blood Transfusion Reactions: No Reported Reaction Past Psychological History: No Psychological Hx Reported Smoking Status: Never smoker, Unknown if ever smoked Past Alcohol Use History: None Reported Past Drug Use History: None Reported - Past Family History Mother Family Medical History: No Reported History Father Family Medical History: Diabetes Mellitus Surgical - Exam Vital Signs Temp Pulse BP 98.2 F 78 129/84 11/15/19 13:31 11/15/19 13:31 11/15/19 13:31 - General well developed, well nourished, no distress - Eyes PERRL - ENT normal pinna - Neck no masses - Respiratory normal expansion - Cardiovascular Rhythm: regular - Abdomen Abdomen: soft, non tender Bariatric Assessment & Plan Plan: Status post sleeve gastrectomy. Patient's doing quite well. Her GERD is minimal abuser. She'll follow-up in 4 weeks. Bariatric Checklist Checklist: Plan: Checklist: EGD: 1. Hiatal hernia: 2. H. Pylori: HgbA1c: Vitamin D: Smoking: Never smoker Primary care physician referral: dr kim Psychiatry clearance: Cardiology clearance: Sleep study: Diet journal: VTE risk score: VTE risk level: Rehab needs at discharge:
== END | disposition home or self-care (01) ==
LOC: BARWHC3 13:13
PROVIDERS: ATTEND Surgery
DX: Z48.815 Encounter for surgical aftercare following surgery on the digestive system (principal); K21.9 Gastro-esophageal reflux disease without esophagitis; Z98.84 Bariatric surgery status
CPT/HCPCS: 99211

== ENCOUNTER → 2019-12-27 | Outpatient (CLI) | payer MEDICARE ==
[2019-12-27 13:14] VITALS: BP 99/64; PULSE 98; TEMP 98.2; BMI 34.0
--- NOTE | 2019-12-27 13:39 | P.HPBAR ---
Bariatric H&P - History & Physicial H&P Date: 12/27/19 History & Physicial: Visit/CC: three month follow up Patient initial contact: Initial weight: 95.708 kg Initial weight in pounds: 211.00 Height: 5 ft 3 in Initial BMI: 37.3 Last weight: Current weight: 87.09 kg Current weight in pounds: 192.00 Current BMI: 34.0 [place] body weight (based on NIH guidelines): 52.163 kg Excess body weight loss: 19.7% The patient is a 64 year-old F who presents for Bariatric Assessment. Patient presents today for gastric sleeve follow-up. She's had some problems. She's also had some relative hypotension. Her systolics in the 100 range. Patient has not had her blood pressure medications adjusted. Past Medical History Past Medical History: Hypertension, Thyroid Disorder Additional Past Medical History / Comment(s): Hypothyroidism. Lt CTS, wearing brace. History of Any Multi-Drug Resistant Organisms: None Reported Past Surgical History: Bariatric Surgery, Tonsillectomy Additional Past Surgical History / Comment(s): LAP BAND (Port Replaced October 2018). Lap band removal 03-25-19, w/ lysis of adhesions. sleeve gastrectomy 10-04-19 Past Anesthesia/Blood Transfusion Reactions: No Reported Reaction Smoking Status: Never smoker, Unknown if ever smoked - Past Family History Mother Family Medical History: No Reported History Father Family Medical History: Diabetes Mellitus Surgical - Exam Vital Signs Temp Pulse BP 98.2 F 98 99/64 12/27/19 13:09 12/27/19 13:09 12/27/19 13:09 - General well developed, well nourished, no distress - Eyes PERRL, normal ocular movement - ENT normal pinna - Neck no masses - Respiratory normal expansion - Cardiovascular Rhythm: regular - Abdomen Abdomen: soft, non tender Bariatric Assessment & Plan Plan: Status post sleeve gastrectomy. Patient's GERD is minimal will be observed for GERD is minimal will be observed. Patient will hold her blood pressure medication tomorrow. She will contact her PCP regarding adjustments of her blood pressure medication. She'll follow-up in one month. Bariatric Checklist Checklist: Plan: Checklist: EGD: 1. Hiatal hernia: 2. H. Pylori: HgbA1c: Vitamin D: Smoking: Never smoker Primary care physician referral: dr kim Psychiatry clearance: Cardiology clearance: Sleep study: Diet journal: VTE risk score: VTE risk level: Rehab needs at discharge:
== END | disposition home or self-care (01) ==
LOC: BARWHC3 12:47
PROVIDERS: ATTEND Surgery
DX: Z48.815 Encounter for surgical aftercare following surgery on the digestive system (principal); K21.9 Gastro-esophageal reflux disease without esophagitis; Z98.84 Bariatric surgery status; E66.01 Morbid (severe) obesity due to excess calories; Z68.34 Body mass index [BMI] 34.0-34.9, adult
CPT/HCPCS: 97803; G0463; 99211

== ENCOUNTER → 2020-02-14 | Outpatient (CLI) | payer MEDICARE ==
[2020-02-14 13:25] VITALS: BP 145/87; PULSE 65; TEMP 98.1; BMI 33.1
--- NOTE | 2020-03-03 07:57 | P.HPBAR ---
Bariatric H&P - History & Physicial H&P Date: 02/14/20 History & Physicial: Visit/CC: follow up Patient initial contact: Initial weight: 95.708 kg Initial weight in pounds: 211.00 Height: 5 ft 3 in Initial BMI: 37.3 Last weight: Current weight: 84.822 kg Current weight in pounds: 187.00 Current BMI: 33.1 [place] body weight (based on NIH guidelines): 52.163 kg Excess body weight loss: 25.0% The patient is a 64 year-old F who presents for Bariatric Assessment. Patient resents today for sleeve gastrectomy follow-up. She has had excellent weight loss. She has some mild GERD. Past Medical History Past Medical History: Hypertension, Thyroid Disorder Additional Past Medical History / Comment(s): Hypothyroidism. Lt CTS, wearing brace. History of Any Multi-Drug Resistant Organisms: None Reported Past Surgical History: Bariatric Surgery, Tonsillectomy Additional Past Surgical History / Comment(s): LAP BAND (Port Replaced October 2018). Lap band removal 03-25-19, w/ lysis of adhesions. sleeve gastrectomy 10-04-19 Past Anesthesia/Blood Transfusion Reactions: No Reported Reaction Past Psychological History: No Psychological Hx Reported Smoking Status: Never smoker, Unknown if ever smoked Past Alcohol Use History: None Reported Past Drug Use History: None Reported - Past Family History Mother Family Medical History: No Reported History Father Family Medical History: Diabetes Mellitus Surgical - Exam Vital Signs Temp Pulse BP 98.1 F 64 145/87 02/14/20 13:13 02/14/20 13:13 02/14/20 13:13 - General well developed, well nourished, no distress - Abdomen Abdomen: soft, non tender Bariatric Assessment & Plan Plan: Status post sleeve gastrectomy. Patient's GERD is minimal a will be observed. Bariatric Checklist Checklist: Plan: Checklist: EGD: 1. Hiatal hernia: 2. H. Pylori: HgbA1c: Vitamin D: Smoking: Never smoker Primary care physician referral: dr kim Psychiatry clearance: Cardiology clearance: Sleep study: Diet journal: VTE risk score: VTE risk level: Rehab needs at discharge:
== END | disposition home or self-care (01) ==
LOC: BARWHC3 12:59
PROVIDERS: ATTEND Surgery
DX: Z48.815 Encounter for surgical aftercare following surgery on the digestive system (principal); K21.9 Gastro-esophageal reflux disease without esophagitis; Z98.84 Bariatric surgery status
CPT/HCPCS: 99211